=== PATIENT | female | born 1945 | race Caucasian/White ===

== ENCOUNTER 2022-11-29 15:33 | Inpatient (IN) ==
[2022-11-29] MEDS ORDERED: DILAUDID INJ IVP PRN (16:06)
--- NOTE | 2022-11-29 16:56 | RAD ---
HISTORYACUTE COLITIS, ILEUS Relevant Clinical InformationSTUDYKUBCOMPARISONNone availableFINDINGSEvaluation of the abdomen demonstrates several dilated loops of bowel in the mid abdomen; the largest loop of bowel measuring 12 cm in diameter. These findings can be seen with a colitis but without definitive bowel wall thickening. Please correlate with abdominopelvic CT imaging or lactic acid levels in order to exclude possible ischemia. There is a nasogastric tube which extends beyond the GE junction and into the stomach. No pathological soft tissue mass or calcification can be observed.The bony structures are grossly intact. Marked rotatory biconvex thoracolumbar spinal scoliosis identified. Uncomplicated right hip arthroplasty in place.IMPRESSIONAs aboveElectronically signed by: JOSÉ ANTONIO PAIGE III (Nov 29, 2022 16:51:29)
[2022-11-29] MEDS ORDERED: D5 1/2 NS 1,000 ML 1,000 ML IV SCH (17:00)
[2022-11-29 17:23] LABS: BASOPHILS % (AUTO) 0.2 % (0.2-1.0); EOSINOPHILS % (AUTO) 0.1 % (0.9-2.9); LYMPHOCYTES # (AUTO) 0.4 X10^3/uL (1.3-2.9); MEAN CORPUSCULAR HEMOGLOBIN 29.9 pg (27.0-34.0); MONOCYTES # (AUTO) 0.4 x10^3/uL (0.3-0.8)
[2022-11-29 17:34] LABS: HEMOGLOBIN 14.8 g/dL (12.0-16.0); MEAN CORPUSCULAR HGB CONC 32.9 g/dL (33.0-35.0); MEAN CORPUSCULAR VOLUME 91.2 fL (80.0-100.0); MEAN PLATELET VOLUME 9.6 fL (7.4-11.0); MONOCYTES % (AUTO) 6.9 % (0.0-13.0); NEUTROPHILS # (AUTO) 5.3 x10^3/uL (2.2-4.8); NEUTROPHILS % (AUTO) 85.8 % (42.0-75.0); RED BLOOD COUNT 4.94 X10^6/uL (3.5-5.4); RED CELL DISTRIBUTION WIDTH 14.2 % (11.6-16.5); WHITE BLOOD COUNT 6.2 X10^3/uL (3.6-10.0)
[2022-11-29 17:42] LABS: ALBUMIN 2.9 g/dL (3.4-5.0); CALCIUM 7.9 mg/dL (8.5-10.1); COR CA(FOR HYPOALB) 8.8 mg/dL (8.5-10.1); CREATININE 1.21 mg/dL (0.55-1.02); TOTAL PROTEIN 5.5 g/dL (6.4-8.2)
[2022-11-29] MEDS: CARDIZEM CD 120 MG 24-HR PO SCH (17:58)
[2022-11-29] MEDS: PROTONIX INJ 40 MG VIAL IVP SCH (20:26)
[2022-11-29] MEDS ORDERED: TORADOL 30 MG VIAL IVP PRN (21:39)
[2022-11-29] MEDS ORDERED: TORADOL 30 MG VIAL ONE (21:50)
[2022-11-29] MEDS ORDERED: ZOSYN VIAL 3.375 GRAMS IV ONE (22:13)
[2022-11-29] MEDS ORDERED: NS 100 ML IV 100 ML ONE (22:13)
[2022-11-29] MEDS: ZOSYN VIAL 3.375 GRAMS 3.375 G in NS 100 ML IV + SPIKE MINIBAG* 100 ML IV SCH (22:18)
[2022-11-29] MEDS: D5 1/2 NS 1,000 ML 1,000 ML IV PRN (23:42)
[2022-11-30] MEDS: TORADOL 30 MG VIAL IVP PRN ×2 (02:58→22:15)
[2022-11-30] MEDS ORDERED: NS 100 ML IV 100 ML ONE (04:52)
[2022-11-30] MEDS: ZOSYN VIAL 3.375 GRAMS 3.375 G in NS 100 ML IV + SPIKE MINIBAG* 100 ML IV SCH (05:01)
[2022-11-30 06:12] LABS: BASOPHILS % (AUTO) 0.1 % (0.2-1.0); EOSINOPHILS % (AUTO) 0.1 % (0.9-2.9); HEMATOCRIT 37.8 % (36.0-47.0); HEMOGLOBIN 12.5 g/dL (12.0-16.0); LYMPHOCYTES # (AUTO) 1.1 X10^3/uL (1.3-2.9); LYMPHOCYTES % (AUTO) 10.1 % (21.0-51.0); MEAN CORPUSCULAR HEMOGLOBIN 29.8 pg (27.0-34.0); MEAN CORPUSCULAR HGB CONC 33.1 g/dL (33.0-35.0); MEAN CORPUSCULAR VOLUME 89.9 fL (80.0-100.0); MONOCYTES # (AUTO) 0.8 x10^3/uL (0.3-0.8); MONOCYTES % (AUTO) 7.2 % (0.0-13.0); NEUTROPHILS # (AUTO) 8.8 x10^3/uL (2.2-4.8); NEUTROPHILS % (AUTO) 82.5 % (42.0-75.0); RED BLOOD COUNT 4.21 X10^6/uL (3.5-5.4); RED CELL DISTRIBUTION WIDTH 14.3 % (11.6-16.5); WHITE BLOOD COUNT 10.6 X10^3/uL (3.6-10.0)
[2022-11-30 06:32] LABS: ALBUMIN 2.1 g/dL (3.4-5.0); CALCIUM 7.4 mg/dL (8.5-10.1); CARBON DIOXIDE 15.2 mmol/L (21-32); COR CA(FOR HYPOALB) 8.9 mg/dL (8.5-10.1); CREATININE 1.65 mg/dL (0.55-1.02); TOTAL PROTEIN 4.7 g/dL (6.4-8.2)
--- NOTE | 2022-11-30 08:07 | DR.CONSULT ---
CONSULT Consultation for Day of: Date: 11/29/22 Chief Complaint Chief Complaint: Medical management Allergies Allergies Allergy/AdvReac Type Severity Reaction Status Date / Time tramadol Allergy Verified 11/29/22 16:59 amoxicillin [From Amoxil] AdvReac Severe ANAPHALEXIS Verified 11/29/22 16:58 REACTION History of Present Illness History of Present Illness: This is a pleasant 77-year-old white female who was transferred over to [facility] after it was found that she has colitis or possible bowel obstruction. Patient was worked up in the [place], [place] emergency department earlier in the morning however they did not have a surgeon on duty. I have recently seen the patient as a new patient earlier this month she has a history of hypertension, GERD, anxiety and hypothyroidism. She has a previous history of appendectomy as well. Currently she reports her pain is under control and that her nausea has subsided at this time. Is noted that she did vomit twice earlier. She had been sick for 3 days previously with no bowel movement. Her symptoms progressively got worse earlier in the day. Past Medical History Past Medical History: Anxiety, GERD, Hypertension and Hypothyroidism Past Surgical History Surgical History: Appendectomy and Ortho Surgery Family History Family Medical History: Diabetes Mellitus and Hypertension Social History Does patient currently use any type of tobacco product: No Have you used tobacco products in the last 12 months: No Type of Tobacco Use: None Does any household member use tobacco: No Alcohol Use: None Drug Use: None Medications Home Medications: tramadol Allergy (Verified 11/29/22 16:59) amoxicillin [From Amoxil] Adverse Reaction (Severe, Verified 11/29/22 16:58) ANAPHALEXIS REACTION CONTINUE taking the following medications aspirin 81 mg capsule 81 mg PO QDAY 11/29/22 [History] clonidine HCl 0.1 mg tablet 1 tab PO QPM 11/29/22 [History] duloxetine 60 mg capsule,delayed release 1 cap PO QPM 11/29/22 [History] ferrous sulfate 325 mg (65 mg iron) tablet 325 mg PO BID 11/29/22 [History] levothyroxine 25 mcg tablet 1 tab PO QAM 11/29/22 [History] lisinopril 10 mg tablet 1 tab PO QAM 11/29/22 [History] meloxicam 7.5 mg tablet 1 tab PO QDAY 11/29/22 [History] pantoprazole 40 mg tablet,delayed release 1 tab PO BID 11/29/22 [History] pregabalin 75 mg capsule 1 cap PO BID 11/29/22 [History] simvastatin 20 mg tablet 1 tab PO QPM 11/29/22 [History] Review of Systems Constitutional: Weakness and Malaise Eyes: No Symptoms Reported ENT: No Symptoms Reported Respiratory: No Symptoms Reported Cardiovascular: No Symptoms Reported Gastrointestinal: Nausea, Vomiting, Abdominal Pain and Constipation Genitourinary: No Symptoms Reported Musculoskeletal: No Symptoms Reported Skin: No Symptoms Reported Neurological: No Symptoms Reported Physical Exam Vital Signs: Temperature 97.6 F Pulse Rate [Left Radial] 101 Pulse Rate 130 Respiratory Rate 22 Blood Pressure [Left Arm] 95/55 Blood Pressure 134/81 O2 Sat by Pulse Oximetry 97 Oriented: Normal, Time, Person and Place Eyes: Normal Ear: Normal Nose: Normal Respiratory: Clear Throughout Cardiovascular: Normal Palpation: Normal Tenderness: Periumbilical Skin: Decreased Turgur Psychiatric: Normal Mood Description: Calm Affect: Normal Speech Pattern: Clear and Appropriate Plan (1) Abdominal pain: Status: Acute Plan: Pain control and follow-up with general surgery recommendations. (2) Nausea & vomiting: Status: Acute Plan: As needed Zofran. (3) Hypertension: Status: Acute Plan: I will give the patient IV Lopressor if she needs control of her blood pressure. (4) Hypothyroidism: Status: Acute (5) GERD (gastroesophageal reflux disease): Status: Acute Plan: IV Protonix 40 mg IV daily.
[2022-11-30] MEDS: PROTONIX INJ 40 MG VIAL IVP SCH ×2 (08:21→21:44)
[2022-11-30] MEDS: MORPHINE SULFATE INJ 2 MG INJ IVP PRN ×3 (08:22→17:04)
[2022-11-30] MEDS: CARDIZEM CD 120 MG 24-HR PO SCH (08:23)
[2022-11-30] MEDS: D5 1/2 NS 1,000 ML 1,000 ML IV PRN (08:35)
--- NOTE | 2022-11-30 08:41 | DR.PROGNOT ---
HOSPITAL PROGRESS NOTE Progress Note for Day of: Progress Note Date: 11/30/22 Chief Complaint Chief Complaint: still with severe abdominal pain and abdominal distention . was hypotensive last night required increase IVF . fair urine output . mild drainage in NGT . . WBC 10.6 .. BUN 39 . Creat 1.6 temp 98 Past Medical Family Social History Allergies: Allergies tramadol Allergy (Verified 11/29/22 16:59) amoxicillin [From Amoxil] Adverse Reaction (Severe, Verified 11/29/22 16:58) ANAPHALEXIS REACTION Review Of Systems Changes in ROS: no changes Vital Signs Vital Signs: Temperature 97.6 F Pulse Rate [Left Radial] 101 Pulse Rate 130 Respiratory Rate 20 Blood Pressure [Left Arm] 95/55 Blood Pressure 134/81 O2 Sat by Pulse Oximetry 97 Physical Exam Oriented: Normal, Time, Person and Place Eyes: Normal Ear: Normal Nose: Normal Cardiovascular: Normal GI:Palpation: Normal (distended abdomen , tympanic and very tender ..BS hypoactive .) GI: Tenderness: Periumbilical Skin: Decreased Turgur Psychiatric: Normal Mood Description: Calm Affect: Normal Speech Pattern: Clear and Appropriate Laboratory and Diagnostics Result Diagrams: 11/30/22 05:35 11/30/22 05:35 Labs: Laboratory WBC 10.6 X10^3/uL (3.6-10.0) H 11/30/22 05:35 RBC 4.21 X10^6/uL (3.5-5.4) 11/30/22 05:35 Hgb 12.5 g/dL (12.0-16.0) D 11/30/22 05:35 Hct 37.8 % (36.0-47.0) 11/30/22 05:35 MCV 89.9 fL (80.0-100.0) 11/30/22 05:35 MCH 29.8 pg (27.0-34.0) 11/30/22 05:35 MCHC 33.1 g/dL (33.0-35.0) 11/30/22 05:35 RDW 14.3 % (11.6-16.5) 11/30/22 05:35 Plt Count 207 X10^3/uL (150.0-450.0) 11/30/22 05:35 MPV 10.0 fL (7.4-11.0) 11/30/22 05:35 Neut % (Auto) 82.5 % (42.0-75.0) H 11/30/22 05:35 Lymph % (Auto) 10.1 % (21.0-51.0) L 11/30/22 05:35 [place] % (Auto) 7.2 % (0.0-13.0) 11/30/22 05:35 Eos % (Auto) 0.1 % (0.9-2.9) L 11/30/22 05:35 Baso % (Auto) 0.1 % (0.2-1.0) L 11/30/22 05:35 Neut # (Auto) 8.8 x10^3/uL (2.2-4.8) H 11/30/22 05:35 Lymph # (Auto) 1.1 X10^3/uL (1.3-2.9) L 11/30/22 05:35 [place] # (Auto) 0.8 x10^3/uL (0.3-0.8) 11/30/22 05:35 Eos # (Auto) 0.0 x10^3/uL (0.0-0.2) 11/30/22 05:35 Baso # (Auto) 0.0 X10^3/uL (0.0-0.1) 11/30/22 05:35 Absolute Nucleated RBC 0.0 /100WBC 11/30/22 05:35 Sodium 140 mmol/L (136-145) 11/30/22 05:35 Corrected Sodium 141 mmol/L (136-145) 11/30/22 05:35 Potassium 4.5 mmol/L (3.5-5.1) 11/30/22 05:35 Chloride 110 mmol/L (98-107) H 11/30/22 05:35 Carbon Dioxide 15.2 mmol/L (21-32) L 11/30/22 05:35 BUN 35 mg/dL (7-18) H 11/30/22 05:35 Creatinine 1.65 mg/dL (0.55-1.02) H 11/30/22 05:35 Est GFR (MDRD) Af Amer 39 (>60) L 11/30/22 05:35 Est GFR (MDRD) Non-Af 32 (>60) L 11/30/22 05:35 Glucose 153 mg/dL (65-99) H 11/30/22 05:35 Calcium 7.4 mg/dL (8.5-10.1) L 11/30/22 05:35 Corrected Calcium 8.9 mg/dL (8.5-10.1) 11/30/22 05:35 Total Bilirubin 0.40 mg/dL (0.2-1.0) 11/30/22 05:35 AST 33 Units/L (15-37) 11/30/22 05:35 ALT 26 Units/L (12-78) 11/30/22 05:35 Alkaline Phosphatase 153 Units/L (46-116) H 11/30/22 05:35 Total Protein 4.7 g/dL (6.4-8.2) L 11/30/22 05:35 Albumin 2.1 g/dL (3.4-5.0) L 11/30/22 05:35 Globulin 2.6 g/dL (2.5-4.5) 11/30/22 05:35 Albumin/Globulin Ratio 0.8 Ratio (1.1-2.1) L 11/30/22 05:35 Assessment and Plan 1: large bowel obstruction . keep NPO , IVF , IV ABT to repeat KUB .
--- NOTE | 2022-11-30 09:01 | PCM.PROG ---
Progress Note Progress Note for Day of Date of Exam: 11/30/22 Subjective Subjective: Patient is complaining of abdominal pain this morning. She also has some pain last night as well but the nurses report. They also note that her blood pressures been running little bit on the low side and because of that they stopped her Dilaudid and change her over to morphine. She is noted to be dehydrated however she is receiving D5 half-normal saline at 150 mL an hour at this time. NG tube still in place. KUB this morning showed increased distention of loops of bowels. Past Medical Family Social History Allergies: Allergies tramadol Allergy (Verified 11/29/22 16:59) amoxicillin [From Amoxil] Adverse Reaction (Severe, Verified 11/29/22 16:58) ANAPHALEXIS REACTION Review of Systems ROS: No change since H&P Vital Signs and I&O's Vital Signs: Temperature 97.6 F Pulse Rate [Left Radial] 101 Pulse Rate 130 Respiratory Rate 20 Blood Pressure [Left Arm] 95/55 Blood Pressure 134/81 O2 Sat by Pulse Oximetry 97 Intake and Output: Intake & Output 11/27/22 11/28/22 11/29/22 11/30/22 11:59 11:59 11:59 11:59 Intake Total 2850 / 2850 Output Total 645 / 645 Balance 2205 / 2205 Physical Exam Oriented: Normal, Time, Person and Place Eyes: Normal Ear: Normal Nose: Normal Respiratory: Normal Cardiovascular: Normal Auscultation: Bowel Sounds: Absent Tenderness: Periumbilical Skin: Decreased Turgur Psychiatric: Normal Mood Description: Calm Affect: Normal Speech Pattern: Clear and Appropriate Laboratory and Diagnostics Result Diagrams: 11/30/22 05:35 11/30/22 05:35 Labs: Laboratory WBC 10.6 X10^3/uL (3.6-10.0) H 11/30/22 05:35 RBC 4.21 X10^6/uL (3.5-5.4) 11/30/22 05:35 Hgb 12.5 g/dL (12.0-16.0) D 11/30/22 05:35 Hct 37.8 % (36.0-47.0) 11/30/22 05:35 MCV 89.9 fL (80.0-100.0) 11/30/22 05:35 MCH 29.8 pg (27.0-34.0) 11/30/22 05:35 MCHC 33.1 g/dL (33.0-35.0) 11/30/22 05:35 RDW 14.3 % (11.6-16.5) 11/30/22 05:35 Plt Count 207 X10^3/uL (150.0-450.0) 11/30/22 05:35 MPV 10.0 fL (7.4-11.0) 11/30/22 05:35 Neut % (Auto) 82.5 % (42.0-75.0) H 11/30/22 05:35 Lymph % (Auto) 10.1 % (21.0-51.0) L 11/30/22 05:35 [place] % (Auto) 7.2 % (0.0-13.0) 11/30/22 05:35 Eos % (Auto) 0.1 % (0.9-2.9) L 11/30/22 05:35 Baso % (Auto) 0.1 % (0.2-1.0) L 11/30/22 05:35 Neut # (Auto) 8.8 x10^3/uL (2.2-4.8) H 11/30/22 05:35 Lymph # (Auto) 1.1 X10^3/uL (1.3-2.9) L 11/30/22 05:35 [place] # (Auto) 0.8 x10^3/uL (0.3-0.8) 11/30/22 05:35 Eos # (Auto) 0.0 x10^3/uL (0.0-0.2) 11/30/22 05:35 Baso # (Auto) 0.0 X10^3/uL (0.0-0.1) 11/30/22 05:35 Absolute Nucleated RBC 0.0 /100WBC 11/30/22 05:35 Sodium 140 mmol/L (136-145) 11/30/22 05:35 Corrected Sodium 141 mmol/L (136-145) 11/30/22 05:35 Potassium 4.5 mmol/L (3.5-5.1) 11/30/22 05:35 Chloride 110 mmol/L (98-107) H 11/30/22 05:35 Carbon Dioxide 15.2 mmol/L (21-32) L 11/30/22 05:35 BUN 35 mg/dL (7-18) H 11/30/22 05:35 Creatinine 1.65 mg/dL (0.55-1.02) H 11/30/22 05:35 Est GFR (MDRD) Af Amer 39 (>60) L 11/30/22 05:35 Est GFR (MDRD) Non-Af 32 (>60) L 11/30/22 05:35 Glucose 153 mg/dL (65-99) H 11/30/22 05:35 Calcium 7.4 mg/dL (8.5-10.1) L 11/30/22 05:35 Corrected Calcium 8.9 mg/dL (8.5-10.1) 11/30/22 05:35 Total Bilirubin 0.40 mg/dL (0.2-1.0) 11/30/22 05:35 AST 33 Units/L (15-37) 11/30/22 05:35 ALT 26 Units/L (12-78) 11/30/22 05:35 Alkaline Phosphatase 153 Units/L (46-116) H 11/30/22 05:35 Total Protein 4.7 g/dL (6.4-8.2) L 11/30/22 05:35 Albumin 2.1 g/dL (3.4-5.0) L 11/30/22 05:35 Globulin 2.6 g/dL (2.5-4.5) 11/30/22 05:35 Albumin/Globulin Ratio 0.8 Ratio (1.1-2.1) L 11/30/22 05:35 Radiology Reviewed: Yes Plan (1) Abdominal pain: Status: Acute Plan: Continue morphine for pain control. I will also check a lactic acid to rule out mesenteric ischemia. (2) Nausea & vomiting: Status: Acute Plan: Continue as needed Zofran. (3) Hypertension: Status: Acute (4) Hypothyroidism: Status: Acute Plan: Hold p.o. levothyroxine at this time. (5) GERD (gastroesophageal reflux disease): Status: Acute Plan: Continue IV Protonix. (6) Dehydration: Status: Acute Plan: Continue IV hydration.
--- NOTE | 2022-11-30 11:12 | RAD ---
KUBHISTORY: ACUTE COLITIS, ILEUS, ABDOMINAL PAIN, NGT PLACEMENTStudy: Single view of the abdomen.Comparison:NoneFindings:There is a NG tube terminating within the stomach.Bowel gas pattern is normal.IMPRESSION:1. NG tube terminating within the stomach.Electronically signed by: TERESA PARSON (Nov 30, 2022 11:10:36)
--- NOTE | 2022-11-30 13:22 | EKG ---
Test Reason : Colitis, abdominal pain Blood Pressure : */* mmHG Vent. Rate : 100 BPM Atrial Rate : 100 BPM P-R Int : 138 ms QRS Dur : 72 ms QT Int : 310 ms P-R-T Axes : 49 21 60 degrees QTc Int : 399 ms Normal sinus rhythm Low voltage QRS Nonspecific T wave abnormality Abnormal ECG No previous ECGs available Confirmed by Ronald Christianson ([id number]) on 12/02/2022 7:08:25 AM Referred By: Confirmed By: Ronald Christianson
[2022-11-30] MEDS: D5 1/2 NS 1,000 ML 1,000 ML IV SCH ×3 (13:37→22:27)
[2022-11-30] MEDS: FORTAZ or TAZICEF VIAL INJ 1 G in NS 100 ML IV 100 ML IV SCH ×2 (13:37→22:17)
--- NOTE | 2022-11-30 13:47 | CT ---
ABDOMEN/PELVIS W/O CONHISTORY: PAINComparison:11/29/2022Technique:Multiple non contrast axial images of the abdomen and pelvis were obtained from the lung bases to the pubic symphysis.. Dose reduction techniques including Automated Exposure Control (AEC) and adjustment of mA and kV were utlized.Findings:The sensitivity for focal lesion detection within the solid abdominal viscera is diminished without the use of IV contrast.The heart is normal in size. There is no pericardial effusion. Developing consolidation of the right and left lung bases, more notable on the right. Trace bilateral effusions.Liver and spleen are normal in size, contour. New moderate amount of perihepatic fluid as well as fluid in the right pericolic gutter. No free air. Calcified granulomas of the spleen. No ductal dilitation. Probable gallbladder sludge without definite evidence of gallbladder inflammation. The pancreas is unremarkable. Adrenal glands are normal. Kidneys are without hydronephrosis or nephrolithiasis.Large amount of mixed liquid and solid stool throughout the colon. Extensive diverticulosis without definite acute diverticulitis. There is fluid in the bilateral pericolic gutters although more notable on the right and, as mentioned, extending into the perihepatic region. This has worsened significantly when compared to prior. No abnormal appearing mesenteric or retroperitoneal lymph nodes.The bladder is normal in appearance. Uterus not well seen. No free fluid or abnormal pelvic lymph nodes.No aggressive osseous lesions. Severe degenerative scoliosis of the thoracolumbar spine.IMPRESSION:1.Significant worsening in the mount of fluid within the right greater than left pericolic gutter as well as now within the right perihepatic region. There is some inflammatory change of the rectosigmoid colon which is similar. The right colon contains both liquid and solid stool. Overall findings may represent colitis. If patient does not demonstrate symptoms of infection, ischemic colitis cannot be excluded. Surgical consultation recommended.2. Developing bibasilar lung consolidations more notable on the right with small adjacent effusions.Electronically signed by: TERESA PARSON (Nov 30, 2022 13:46:33)
[2022-11-30] MEDS ORDERED: ZOSYN VIAL 3.375 GRAMS 3.375 G in NS 100 ML IV 100 ML IV SCH (14:00)
[2022-11-30] MEDS: FLAGYL IV PREMIX 500 MG BAG 500 MG/100 ML BAG IV SCH (17:25)
[2022-11-30] MEDS: CIPRO IV 400 MG PREMIX* 400 MG/200 ML IV.SOLN. IV SCH (21:44)
[2022-11-30] MEDS: CYMBALTA PO SCH (21:44)
[2022-12-01] MEDS: FLAGYL IV PREMIX 500 MG BAG 500 MG/100 ML BAG IV SCH ×3 (00:27→16:33)
[2022-12-01] MEDS: D5 1/2 NS 1,000 ML 1,000 ML IV SCH ×4 (03:30→21:06)
[2022-12-01] MEDS: FORTAZ or TAZICEF VIAL INJ 1 G in NS 100 ML IV 100 ML IV SCH ×3 (05:26→21:06)
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
[2022-12-01 06:20] LABS: BASOPHILS % (AUTO) 0.2 % (0.2-1.0); EOSINOPHILS % (AUTO) 0.5 % (0.9-2.9); HEMATOCRIT 34.7 % (36.0-47.0); HEMOGLOBIN 11.6 g/dL (12.0-16.0); LYMPHOCYTES # (AUTO) 0.8 X10^3/uL (1.3-2.9); LYMPHOCYTES % (AUTO) 10.1 % (21.0-51.0); MEAN CORPUSCULAR HEMOGLOBIN 30.2 pg (27.0-34.0); MEAN CORPUSCULAR HGB CONC 33.4 g/dL (33.0-35.0); MEAN CORPUSCULAR VOLUME 90.3 fL (80.0-100.0); MEAN PLATELET VOLUME 9.9 fL (7.4-11.0); MONOCYTES # (AUTO) 0.5 x10^3/uL (0.3-0.8); MONOCYTES % (AUTO) 5.9 % (0.0-13.0); NEUTROPHILS # (AUTO) 6.7 x10^3/uL (2.2-4.8); NEUTROPHILS % (AUTO) 83.3 % (42.0-75.0); RED BLOOD COUNT 3.84 X10^6/uL (3.5-5.4); RED CELL DISTRIBUTION WIDTH 14.2 % (11.6-16.5)
[2022-12-01 06:35] LABS: ALANINE AMINOTRANSFERASE 30 Units/L (12-78); ALBUMIN 1.9 g/dL (3.4-5.0); ALKALINE PHOSPHATASE 169 Units/L (46-116); ASPARTATE AMINO TRANSFERASE 39 Units/L (15-37); BLOOD UREA NITROGEN 43 mg/dL (7-18); CHLORIDE 108 mmol/L (98-107); COR CA(FOR HYPOALB) 8.7 mg/dL (8.5-10.1); CREATININE 1.75 mg/dL (0.55-1.02); MAGNESIUM 1.9 mg/dL (2.0-2.9); SODIUM 138 mmol/L (136-145); TOTAL PROTEIN 4.7 g/dL (6.4-8.2); eGFR NON BLACK RACES 30 (>60)
[2022-12-01 07:08] LABS: BAND NEUTROPHILS % 24 % (0-10)
[2022-12-01 07:09] LABS: METAMYELOCYTES % 4; MYELOCYTES % 1
[2022-12-01 07:10] LABS: BURR CELLS SLIGHT; PLATELET MORPHOLOGY COMMENT NORMAL (NORMAL)
[2022-12-01] MEDS ORDERED: NS 500 ML IV 500 ML IV ONE (08:17)
[2022-12-01] MEDS: TORADOL 30 MG VIAL IVP PRN (08:54)
[2022-12-01] MEDS: PROTONIX INJ 40 MG VIAL IVP SCH ×2 (08:55→20:23)
[2022-12-01] MEDS: SYNTHROID 25 mcg TAB PO SCH (08:56)
[2022-12-01] MEDS ORDERED: EXT REL PO SCH (09:00)
[2022-12-01] MEDS ORDERED: DILTIAZEM HCL 120 MG PO SCH (09:00)
[2022-12-01] MEDS: CARDIZEM CD 120 MG 24-HR PO SCH (09:39)
--- NOTE | 2022-12-01 11:18 | PCM.PROG ---
Progress Note Progress Note for Day of Date of Exam: 12/01/22 Subjective Subjective: The patient is still complaining of abdominal pain this point. She is still distended and does not have bowel sounds again this morning. She still not had a bowel movement. CT scan yesterday showed significant worsening amount of fluid within the right greater and left paracolic gutters. There was also inflammatory changes seen in the rectosigmoid colon as well. The right colon contained liquid and solid stool. Overall findings may represent colitis or ischemic colitis. It is noted that her blood pressure still down and that her BUN and creatinine are trending up again since yesterday. Past Medical Family Social History Allergies: Allergies tramadol Allergy (Verified 11/29/22 16:59) amoxicillin [From Amoxil] Adverse Reaction (Severe, Verified 11/29/22 16:58) ANAPHALEXIS REACTION Review of Systems ROS: No change since H&P Vital Signs and I&O's Vital Signs: Temperature 98.6 F Pulse Rate [Left Radial] 108 Pulse Rate 130 Respiratory Rate 16 Blood Pressure [Left Arm] 95/50 Blood Pressure 134/81 O2 Sat by Pulse Oximetry 100 Intake and Output: Intake & Output 11/28/22 11/29/22 11/30/22 12/01/22 11:59 11:59 11:59 11:59 Intake Total 2850 / 2850 2930 / 2930 Output Total 645 / 645 1400 / 1400 Balance 2205 / 2205 1530 / 1530 Physical Exam Oriented: Normal, Time, Person and Place Eyes: Normal Ear: Normal Nose: Normal Respiratory: Normal Cardiovascular: Normal Auscultation: Bowel Sounds: Absent Tenderness: Periumbilical Skin: Decreased Turgur Psychiatric: Normal Mood Description: Calm Affect: Normal Speech Pattern: Clear and Appropriate Laboratory and Diagnostics Result Diagrams: 12/01/22 05:40 12/01/22 05:40 Labs: Laboratory WBC 8.0 X10^3/uL (3.6-10.0) 12/01/22 05:40 RBC 3.84 X10^6/uL (3.5-5.4) 12/01/22 05:40 Hgb 11.6 g/dL (12.0-16.0) L 12/01/22 05:40 Hct 34.7 % (36.0-47.0) L 12/01/22 05:40 MCV 90.3 fL (80.0-100.0) 12/01/22 05:40 MCH 30.2 pg (27.0-34.0) 12/01/22 05:40 MCHC 33.4 g/dL (33.0-35.0) 12/01/22 05:40 RDW 14.2 % (11.6-16.5) 12/01/22 05:40 Plt Count 165 X10^3/uL (150.0-450.0) 12/01/22 05:40 Plt Count Comment Adequate (ADEQUATE) 12/01/22 05:40 MPV 9.9 fL (7.4-11.0) 12/01/22 05:40 Neut % (Auto) 83.3 % (42.0-75.0) H 12/01/22 05:40 Lymph % (Auto) 10.1 % (21.0-51.0) L 12/01/22 05:40 [place] % (Auto) 5.9 % (0.0-13.0) 12/01/22 05:40 Eos % (Auto) 0.5 % (0.9-2.9) L 12/01/22 05:40 Baso % (Auto) 0.2 % (0.2-1.0) 12/01/22 05:40 Neut # (Auto) 6.7 x10^3/uL (2.2-4.8) H 12/01/22 05:40 Lymph # (Auto) 0.8 X10^3/uL (1.3-2.9) L 12/01/22 05:40 [place] # (Auto) 0.5 x10^3/uL (0.3-0.8) 12/01/22 05:40 Eos # (Auto) 0.0 x10^3/uL (0.0-0.2) 12/01/22 05:40 Baso # (Auto) 0.0 X10^3/uL (0.0-0.1) 12/01/22 05:40 Absolute Nucleated RBC 0.1 /100WBC 12/01/22 05:40 Total Counted 100 12/01/22 05:40 Neutrophils % (Manual) 45 % (39-76) 12/01/22 05:40 Band Neutrophils % 24 % (0-10) H 12/01/22 05:40 Lymphocytes % (Manual) 14 % (13-43) 12/01/22 05:40 Monocytes % (Manual) 12 % (4-9) H 12/01/22 05:40 Metamyelocytes % 4 12/01/22 05:40 Myelocytes % 1 12/01/22 05:40 Plt Morphology Comment Normal (NORMAL) 12/01/22 05:40 RBC Morphology Abnormal (NORMAL) A 12/01/22 05:40 [place] Cells Slight A 12/01/22 05:40 Sodium 138 mmol/L (136-145) 12/01/22 05:40 Corrected Sodium TNP 12/01/22 05:40 Potassium 4.5 mmol/L (3.5-5.1) 12/01/22 05:40 Chloride 108 mmol/L (98-107) H 12/01/22 05:40 Carbon Dioxide 17.0 mmol/L (21-32) L 12/01/22 05:40 BUN 43 mg/dL (7-18) H 12/01/22 05:40 Creatinine 1.75 mg/dL (0.55-1.02) H 12/01/22 05:40 Est GFR (MDRD) Af Amer 36 (>60) L 12/01/22 05:40 Est GFR (MDRD) Non-Af 30 (>60) L 12/01/22 05:40 Glucose 92 mg/dL (65-99) 12/01/22 05:40 Lactic Acid 1.8 mmol/L (0.4-2.0) 11/30/22 15:12 Calcium 7.0 mg/dL (8.5-10.1) L 12/01/22 05:40 Corrected Calcium 8.7 mg/dL (8.5-10.1) 12/01/22 05:40 Magnesium 1.9 mg/dL (2.0-2.9) L 12/01/22 05:40 Total Bilirubin 0.30 mg/dL (0.2-1.0) 12/01/22 05:40 AST 39 Units/L (15-37) H 12/01/22 05:40 ALT 30 Units/L (12-78) 12/01/22 05:40 Alkaline Phosphatase 169 Units/L (46-116) H 12/01/22 05:40 Total Protein 4.7 g/dL (6.4-8.2) L 12/01/22 05:40 Albumin 1.9 g/dL (3.4-5.0) L 12/01/22 05:40 Globulin 2.8 g/dL (2.5-4.5) 12/01/22 05:40 Albumin/Globulin Ratio 0.7 Ratio (1.1-2.1) L 12/01/22 05:40 Plan (1) Abdominal pain: Status: Acute Narrative Support Text: Patient may have mesenteric ischemia versus colitis. General surgery plans on taking the patient to surgery later this morning. Follow-up with results. Plan: Continue morphine for pain control. Exploratory laparotomy this morning. (2) Nausea & vomiting: Status: Acute Plan: Continue as needed Zofran. (3) Hypertension: Status: Acute (4) Hypothyroidism: Status: Acute Plan: Hold p.o. levothyroxine at this time. (5) GERD (gastroesophageal reflux disease): Status: Acute Plan: Continue IV Protonix. (6) Dehydration: Status: Acute Plan: Continue IV hydration. (7) Acute kidney failure: Status: Acute Plan: I will give the patient a bolus of 500 mL normal saline x1 this morning.
[2022-12-01] MEDS ORDERED: LR 1,000 ML IV 1,000 ML IV ONE (11:46)
--- NOTE | 2022-12-01 11:49 | PCM.PROG ---
Progress Note - Subjective Subjective: The patient is still complaining of abdominal pain this point. She is still distended and does not have bowel sounds again this morning. She still not had a bowel movement. CT scan yesterday showed significant worsening amount of fluid within the right greater and left paracolic gutters. There was also inflammatory changes seen in the rectosigmoid colon as well. The right colon contained liquid and solid stool. Overall findings may represent colitis or ischemic colitis. It is noted that her blood pressure still down and that her BUN and creatinine are trending up again since yesterday. - Past Medical Family Social History Allergies: Allergies tramadol Allergy (Verified 11/29/22 16:59) amoxicillin [From Amoxil] Adverse Reaction (Severe, Verified 11/29/22 16:58) ANAPHALEXIS REACTION - Review of Systems ROS: No change since H&P - Vital Signs and I&O's Vital Signs: Temperature 98.6 F Pulse Rate [Left Radial] 108 Pulse Rate 130 Respiratory Rate 16 Blood Pressure [Left Arm] 95/50 Blood Pressure 134/81 O2 Sat by Pulse Oximetry 100 Intake and Output: Intake & Output 11/28/22 11/29/22 11/30/22 12/01/22 23:59 23:59 23:59 23:59 Intake Total 1600 / 1600 3597 / 3597 583 / 583 Output Total 425 / 425 995 / 995 625 / 625 Balance 1175 / 1175 2602 / 2602 -42 / -42 - Physical Exam Oriented: Normal, Time, Person, Place Eyes: Normal Ear: Normal Nose: Normal Respiratory: Normal Cardiovascular: Normal Auscultation: Bowel Sounds: Absent Tenderness: Periumbilical Skin: Decreased Turgur Psychiatric: Normal Mood Description: Calm Affect: Normal Speech Pattern: Clear, Appropriate - Laboratory and Diagnostics Result Diagrams: 12/01/22 05:40 12/01/22 05:40 Labs: Laboratory WBC 8.0 X10^3/uL (3.6-10.0) 12/01/22 05:40 RBC 3.84 X10^6/uL (3.5-5.4) 12/01/22 05:40 Hgb 11.6 g/dL (12.0-16.0) L 12/01/22 05:40 Hct 34.7 % (36.0-47.0) L 12/01/22 05:40 MCV 90.3 fL (80.0-100.0) 12/01/22 05:40 MCH 30.2 pg (27.0-34.0) 12/01/22 05:40 MCHC 33.4 g/dL (33.0-35.0) 12/01/22 05:40 RDW 14.2 % (11.6-16.5) 12/01/22 05:40 Plt Count 165 X10^3/uL (150.0-450.0) 12/01/22 05:40 Plt Count Comment Adequate (ADEQUATE) 12/01/22 05:40 MPV 9.9 fL (7.4-11.0) 12/01/22 05:40 Neut % (Auto) 83.3 % (42.0-75.0) H 12/01/22 05:40 Lymph % (Auto) 10.1 % (21.0-51.0) L 12/01/22 05:40 [place] % (Auto) 5.9 % (0.0-13.0) 12/01/22 05:40 Eos % (Auto) 0.5 % (0.9-2.9) L 12/01/22 05:40 Baso % (Auto) 0.2 % (0.2-1.0) 12/01/22 05:40 Neut # (Auto) 6.7 x10^3/uL (2.2-4.8) H 12/01/22 05:40 Lymph # (Auto) 0.8 X10^3/uL (1.3-2.9) L 12/01/22 05:40 [place] # (Auto) 0.5 x10^3/uL (0.3-0.8) 12/01/22 05:40 Eos # (Auto) 0.0 x10^3/uL (0.0-0.2) 12/01/22 05:40 Baso # (Auto) 0.0 X10^3/uL (0.0-0.1) 12/01/22 05:40 Absolute Nucleated RBC 0.1 /100WBC 12/01/22 05:40 Total Counted 100 12/01/22 05:40 Neutrophils % (Manual) 45 % (39-76) 12/01/22 05:40 Band Neutrophils % 24 % (0-10) H 12/01/22 05:40 Lymphocytes % (Manual) 14 % (13-43) 12/01/22 05:40 Monocytes % (Manual) 12 % (4-9) H 12/01/22 05:40 Metamyelocytes % 4 12/01/22 05:40 Myelocytes % 1 12/01/22 05:40 Plt Morphology Comment Normal (NORMAL) 12/01/22 05:40 RBC Morphology Abnormal (NORMAL) A 12/01/22 05:40 Rusty Cells Slight A 12/01/22 05:40 Sodium 138 mmol/L (136-145) 12/01/22 05:40 Corrected Sodium TNP 12/01/22 05:40 Potassium 4.5 mmol/L (3.5-5.1) 12/01/22 05:40 Chloride 108 mmol/L (98-107) H 12/01/22 05:40 Carbon Dioxide 17.0 mmol/L (21-32) L 12/01/22 05:40 BUN 43 mg/dL (7-18) H 12/01/22 05:40 Creatinine 1.75 mg/dL (0.55-1.02) H 12/01/22 05:40 Est GFR (MDRD) Af Amer 36 (>60) L 12/01/22 05:40 Est GFR (MDRD) Non-Af 30 (>60) L 12/01/22 05:40 Glucose 92 mg/dL (65-99) 12/01/22 05:40 Lactic Acid 1.8 mmol/L (0.4-2.0) 11/30/22 15:12 Calcium 7.0 mg/dL (8.5-10.1) L 12/01/22 05:40 Corrected Calcium 8.7 mg/dL (8.5-10.1) 12/01/22 05:40 Magnesium 1.9 mg/dL (2.0-2.9) L 12/01/22 05:40 Total Bilirubin 0.30 mg/dL (0.2-1.0) 12/01/22 05:40 AST 39 Units/L (15-37) H 12/01/22 05:40 ALT 30 Units/L (12-78) 12/01/22 05:40 Alkaline Phosphatase 169 Units/L (46-116) H 12/01/22 05:40 Total Protein 4.7 g/dL (6.4-8.2) L 12/01/22 05:40 Albumin 1.9 g/dL (3.4-5.0) L 12/01/22 05:40 Globulin 2.8 g/dL (2.5-4.5) 12/01/22 05:40 Albumin/Globulin Ratio 0.7 Ratio (1.1-2.1) L 12/01/22 05:40 Procedures (ALL) - Central Line Placement PCM.CLCO: written consent Time out performed: Yes Patient placed pm monitor/pulse ox: Yes MD prep: mask, gown, gloves, other Centrial line prep: chlorhexidine scrub Local anesthsia used: lidocane 1% Ultrasound used for placement: Yes (good ultrasound visualization) Central line lumen ininserted: double (PICC to right arm) Post procedure: good blood return, all ports aspirated, flushed,capped, sterile dressing applied (+biopatch, +statlock) Post procedure xray: tip oc catheter in good position, no pneumothorax seen Patient tolerated procedure: Yes Complications: none
[2022-12-01] MEDS ORDERED: POLYMYXIN B SULFATE ONE ×2 (11:56→13:50)
[2022-12-01] MEDS ORDERED: NS 1,000 ML IV 1,000 ML ONE ×2 (12:09→14:08)
[2022-12-01] MEDS ORDERED: NEO-SYNEPHRINE INJ 30 MG in NS 500 ML IV 500 ML IV PRN (12:12)
[2022-12-01] MEDS ORDERED: ZEMURON 100 MG VIAL ONE (12:14)
[2022-12-01] MEDS ORDERED: DIPRIVAN VIAL 20 ML ONE (12:14)
[2022-12-01] MEDS ORDERED: BRIDION ONE (12:14)
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
[2022-12-01] MEDS ORDERED: FENTANYL VIAL INJ 250 mcg ONE (12:15)
[2022-12-01] MEDS ORDERED: VERSED ONE (12:16)
[2022-12-01] MEDS ORDERED: ULTANE GAS IN ONE (12:20)
[2022-12-01] MEDS: CIPRO IV 400 MG PREMIX* 400 MG/200 ML IV.SOLN. IV SCH ×2 (14:12→20:23)
[2022-12-01] MEDS ORDERED: BENADRYL INJ 50 MG VIAL IVP PRN (15:06)
[2022-12-01] MEDS ORDERED: ZOFRAN INJ 4 MG VIAL IVP PRN (15:06)
[2022-12-01] MEDS ORDERED: DILAUDID INJ IVP PRN (15:06)
[2022-12-01] MEDS ORDERED: BARHEMSYS INJ IVP PRN (15:06)
[2022-12-01] MEDS: DILAUDID INJ IVP PRN (16:02)
[2022-12-01] MEDS: CYMBALTA PO SCH (20:23)
[2022-12-02] MEDS: FLAGYL IV PREMIX 500 MG BAG 500 MG/100 ML BAG IV SCH ×3 (00:10→18:53)
[2022-12-02] MEDS: DILAUDID INJ IVP PRN ×3 (00:11→23:07)
[2022-12-02] MEDS: D5 1/2 NS 1,000 ML 1,000 ML IV SCH ×4 (04:26→16:01)
[2022-12-02] MEDS: FORTAZ or TAZICEF VIAL INJ 1 G in NS 100 ML IV 100 ML IV SCH ×3 (05:16→21:16)
[2022-12-02 05:26] LABS: BASOPHILS % (AUTO) 0.3 % (0.2-1.0); EOSINOPHILS # (AUTO) 0.1 x10^3/uL (0.0-0.2); EOSINOPHILS % (AUTO) 1.4 % (0.9-2.9); HEMATOCRIT 29.4 % (36.0-47.0); HEMOGLOBIN 9.8 g/dL (12.0-16.0); LYMPHOCYTES % (AUTO) 13.3 % (21.0-51.0); MEAN CORPUSCULAR HEMOGLOBIN 29.8 pg (27.0-34.0); MEAN CORPUSCULAR HGB CONC 33.3 g/dL (33.0-35.0); MEAN CORPUSCULAR VOLUME 89.5 fL (80.0-100.0); MEAN PLATELET VOLUME 10.5 fL (7.4-11.0); MONOCYTES # (AUTO) 0.3 x10^3/uL (0.3-0.8); MONOCYTES % (AUTO) 4.3 % (0.0-13.0); NEUTROPHILS # (AUTO) 5.9 x10^3/uL (2.2-4.8); NEUTROPHILS % (AUTO) 80.7 % (42.0-75.0); RED BLOOD COUNT 3.28 X10^6/uL (3.5-5.4); RED CELL DISTRIBUTION WIDTH 14.6 % (11.6-16.5); WHITE BLOOD COUNT 7.3 X10^3/uL (3.6-10.0)
[2022-12-02 05:36] LABS: ALANINE AMINOTRANSFERASE 27 Units/L (12-78); ALBUMIN 1.5 g/dL (3.4-5.0); ALKALINE PHOSPHATASE 135 Units/L (46-116); ASPARTATE AMINO TRANSFERASE 31 Units/L (15-37); BLOOD UREA NITROGEN 41 mg/dL (7-18); CALCIUM 6.7 mg/dL (8.5-10.1); CARBON DIOXIDE 18.9 mmol/L (21-32); CHLORIDE 110 mmol/L (98-107); COR CA(FOR HYPOALB) 8.7 mg/dL (8.5-10.1); CREATININE 1.62 mg/dL (0.55-1.02); SODIUM 138 mmol/L (136-145); TOTAL PROTEIN 4.1 g/dL (6.4-8.2); eGFR NON BLACK RACES 33 (>60)
[2022-12-02] MEDS: TORADOL 30 MG VIAL IVP PRN ×2 (05:38→22:37)
[2022-12-02 06:07] LABS: BAND NEUTROPHILS % 7 % (0-10); PLATELET MORPHOLOGY COMMENT NORMAL (NORMAL)
[2022-12-02] MEDS: MAGNESIUM SULFATE 1 GRAM/100 mL PREMIX 1 G/100 ML BAG IV PRN ×2 (06:32→14:52)
--- NOTE | 2022-12-02 08:44 | DR.PROGNOT ---
HOSPITAL PROGRESS NOTE Progress Note for Day of: Progress Note Date: 12/02/22 Chief Complaint Chief Complaint: PO sub total colectomy , ileostomy for gangrenous colon . stable .fair urine out put . BP is the 80 th and 90th . slight improvement of renal BUN/Creat . afebrile . Past Medical Family Social History Allergies: Allergies tramadol Allergy (Verified 11/29/22 16:59) amoxicillin [From Amoxil] Adverse Reaction (Severe, Verified 11/29/22 16:58) ANAPHALEXIS REACTION Review Of Systems ROS: No change since H&P Changes in ROS: no changes Vital Signs Vital Signs: Temperature 98.4 F Pulse Rate [Left Radial] 89 Pulse Rate 87 Respiratory Rate 20 Blood Pressure [Left Arm] 94/51 Blood Pressure 92/50 O2 Sat by Pulse Oximetry 97 Physical Exam Oriented: Normal, Time, Person and Place Eyes: Normal Ear: Normal Nose: Normal Respiratory: Normal Cardiovascular: Normal GI:Auscultation: Absent GI:Palpation: Other (soft abdomen , with diffuse tenderness . BS hypo active .) GI: Tenderness: Periumbilical Skin: Decreased Turgur Psychiatric: Normal Mood Description: Calm Affect: Normal Speech Pattern: Unclear Laboratory and Diagnostics Result Diagrams: 12/02/22 04:38 12/02/22 04:38 Labs: 12/01/22 12:45 Abdomen Wound Gram Stain - Final 12/01/22 12:45 Abdomen Wound Culture - Preliminary Laboratory WBC 7.3 X10^3/uL (3.6-10.0) 12/02/22 04:38 RBC 3.28 X10^6/uL (3.5-5.4) L 12/02/22 04:38 Hgb 9.8 g/dL (12.0-16.0) L 12/02/22 04:38 Hct 29.4 % (36.0-47.0) L 12/02/22 04:38 MCV 89.5 fL (80.0-100.0) 12/02/22 04:38 MCH 29.8 pg (27.0-34.0) 12/02/22 04:38 MCHC 33.3 g/dL (33.0-35.0) 12/02/22 04:38 RDW 14.6 % (11.6-16.5) 12/02/22 04:38 Plt Count 114 X10^3/uL (150.0-450.0) L 12/02/22 04:38 Plt Count Comment Decreased (ADEQUATE) A 12/02/22 04:38 MPV 10.5 fL (7.4-11.0) 12/02/22 04:38 Neut % (Auto) 80.7 % (42.0-75.0) H 12/02/22 04:38 Lymph % (Auto) 13.3 % (21.0-51.0) L 12/02/22 04:38 [place] % (Auto) 4.3 % (0.0-13.0) 12/02/22 04:38 Eos % (Auto) 1.4 % (0.9-2.9) 12/02/22 04:38 Baso % (Auto) 0.3 % (0.2-1.0) 12/02/22 04:38 Neut # (Auto) 5.9 x10^3/uL (2.2-4.8) H 12/02/22 04:38 Lymph # (Auto) 1.0 X10^3/uL (1.3-2.9) L 12/02/22 04:38 [place] # (Auto) 0.3 x10^3/uL (0.3-0.8) 12/02/22 04:38 Eos # (Auto) 0.1 x10^3/uL (0.0-0.2) 12/02/22 04:38 Baso # (Auto) 0.0 X10^3/uL (0.0-0.1) 12/02/22 04:38 Absolute Nucleated RBC 0.0 /100WBC 12/02/22 04:38 Total Counted 100 12/02/22 04:38 Neutrophils % (Manual) 78 % (39-76) H 12/02/22 04:38 Band Neutrophils % 7 % (0-10) 12/02/22 04:38 Lymphocytes % (Manual) 10 % (13-43) L 12/02/22 04:38 Monocytes % (Manual) 2 % (4-9) L 12/02/22 04:38 Eosinophils % (Manual) 3 % (0-6) 12/02/22 04:38 Metamyelocytes % 4 12/01/22 05:40 Myelocytes % 1 02/24/23 05:40 Plt Morphology Comment Normal (NORMAL) 12/02/22 04:38 RBC Morphology Normal (NORMAL) 12/02/22 04:38 Rusty Cells Slight A 12/01/22 05:40 Sodium 138 mmol/L (136-145) 12/02/22 04:38 Corrected Sodium TNP 12/02/22 04:38 Potassium 4.3 mmol/L (3.5-5.1) 12/02/22 04:38 Chloride 110 mmol/L (98-107) H 12/02/22 04:38 Carbon Dioxide 18.9 mmol/L (21-32) L 12/02/22 04:38 BUN 41 mg/dL (7-18) H 12/02/22 04:38 Creatinine 1.62 mg/dL (0.55-1.02) H 12/02/22 04:38 Est GFR (MDRD) Af Amer 40 (>60) L 12/02/22 04:38 Est GFR (MDRD) Non-Af 33 (>60) L 12/02/22 04:38 Glucose 100 mg/dL (65-99) H 12/02/22 04:38 Lactic Acid 1.8 mmol/L (0.4-2.0) 11/30/22 15:12 Calcium 6.7 mg/dL (8.5-10.1) L 12/02/22 04:38 Corrected Calcium 8.7 mg/dL (8.5-10.1) 12/02/22 04:38 Magnesium 1.6 mg/dL (2.0-2.9) L 12/02/22 04:38 Total Bilirubin 0.30 mg/dL (0.2-1.0) 12/02/22 04:38 AST 31 Units/L (15-37) 12/02/22 04:38 ALT 27 Units/L (12-78) 12/02/22 04:38 Alkaline Phosphatase 135 Units/L (46-116) H 12/02/22 04:38 Total Protein 4.1 g/dL (6.4-8.2) L 12/02/22 04:38 Albumin 1.5 g/dL (3.4-5.0) L 12/02/22 04:38 Globulin 2.6 g/dL (2.5-4.5) 12/02/22 04:38 Albumin/Globulin Ratio 0.6 Ratio (1.1-2.1) L 12/02/22 04:38 Tissue Pathology To follow 12/01/22 13:25 Assessment and Plan 1: colon gangrene and ischemia . s/p subtotal colectomy , ileostomy . PO care , TPN , ABT , OOB with binder , may have ice and water , DVT prophylaxis .
[2022-12-02] MEDS: MORPHINE SULFATE INJ 2 MG INJ IVP PRN ×2 (08:46→20:07)
[2022-12-02] MEDS: CIPRO IV 400 MG PREMIX* 400 MG/200 ML IV.SOLN. IV SCH ×2 (09:00→21:16)
[2022-12-02] MEDS ORDERED: PHARMACY CONSULT - TPN XX SCH (09:00)
[2022-12-02] MEDS ORDERED: CARDIZEM CD 120 MG 24-HR PO SCH (09:00)
[2022-12-02] MEDS: SYNTHROID 25 mcg TAB PO SCH (09:01)
[2022-12-02] MEDS: LOVENOX INJ 40 MG SYR SC SCH (09:01)
[2022-12-02] MEDS: PROTONIX INJ 40 MG VIAL IVP SCH ×2 (09:15→21:16)
[2022-12-02 10:37] VITALS: BMI 29.2
[2022-12-02] MEDS ORDERED: DRUG FILTER EXTENSION SET ONE ×2 (11:20→23:58)
--- NOTE | 2022-12-02 11:27 | PCM.PROG ---
Progress Note Progress Note for Day of Date of Exam: 12/02/22 Subjective Subjective: Pt is a 77 year old female s/p subtotal colectomy, ileostomy. This morning she is resting in bed. No acute events overnight. She is followed by general surgery-Dr Cosby. Labs: Wbc 7.3, Hgb 9.8, Plt 114, Na 138, K 4.3, Creatinine 1.62, Glucose 100. Pt will be started on TPN nutrition, can start ice and water, and instructions were given out of bed as tolerated. Otherwise, will continue with current treatment plan. Continue to closely monitor and follow up labs in the morning. Past Medical Family Social History Allergies: Allergies tramadol Allergy (Verified 11/29/22 16:59) amoxicillin [From Amoxil] Adverse Reaction (Severe, Verified 11/29/22 16:58) ANAPHALEXIS REACTION Review of Systems ROS: No change since H&P ROS changes noted: see HPI Vital Signs and I&O's Vital Signs: Temperature 98.4 F Pulse Rate [Left Radial] 89 Pulse Rate 85 Respiratory Rate 16 Blood Pressure [Left Arm] 94/51 Blood Pressure 94/52 O2 Sat by Pulse Oximetry 97 Intake and Output: Intake & Output 11/29/22 11/30/22 12/01/22 12/02/22 23:59 23:59 23:59 23:59 Intake Total 1600 / 1600 3597 / 3597 5821 / 5821 682 / 682 Output Total 425 / 425 995 / 995 3875 / 3875 335 / 335 Balance 1175 / 1175 2602 / 2602 1946 / 1946 347 / 347 Physical Exam Oriented: Normal, Time, Person and Place Eyes: Normal Ear: Normal Nose: Normal Respiratory: Normal Cardiovascular: Normal Auscultation: Bowel Sounds: Normal Tenderness: Periumbilical Skin: Decreased Turgur Psychiatric: Normal Mood Description: Calm Affect: Normal Laboratory and Diagnostics Result Diagrams: 12/02/22 04:38 12/02/22 04:38 Labs: 12/01/22 12:45 Abdomen Wound Gram Stain - Final 12/01/22 12:45 Abdomen Wound Culture - Preliminary Laboratory WBC 7.3 X10^3/uL (3.6-10.0) 12/02/22 04:38 RBC 3.28 X10^6/uL (3.5-5.4) L 12/02/22 04:38 Hgb 9.8 g/dL (12.0-16.0) L 12/02/22 04:38 Hct 29.4 % (36.0-47.0) L 12/02/22 04:38 MCV 89.5 fL (80.0-100.0) 12/02/22 04:38 MCH 29.8 pg (27.0-34.0) 12/02/22 04:38 MCHC 33.3 g/dL (33.0-35.0) 12/02/22 04:38 RDW 14.6 % (11.6-16.5) 12/02/22 04:38 Plt Count 114 X10^3/uL (150.0-450.0) L 12/02/22 04:38 Plt Count Comment Decreased (ADEQUATE) A 12/02/22 04:38 MPV 10.5 fL (7.4-11.0) 12/02/22 04:38 Neut % (Auto) 80.7 % (42.0-75.0) H 12/02/22 04:38 Lymph % (Auto) 13.3 % (21.0-51.0) L 12/02/22 04:38 [place] % (Auto) 4.3 % (0.0-13.0) 12/02/22 04:38 Eos % (Auto) 1.4 % (0.9-2.9) 12/02/22 04:38 Baso % (Auto) 0.3 % (0.2-1.0) 12/02/22 04:38 Neut # (Auto) 5.9 x10^3/uL (2.2-4.8) H 12/02/22 04:38 Lymph # (Auto) 1.0 X10^3/uL (1.3-2.9) L 12/02/22 04:38 [place] # (Auto) 0.3 x10^3/uL (0.3-0.8) 12/02/22 04:38 Eos # (Auto) 0.1 x10^3/uL (0.0-0.2) 12/02/22 04:38 Baso # (Auto) 0.0 X10^3/uL (0.0-0.1) 12/02/22 04:38 Absolute Nucleated RBC 0.0 /100WBC 12/02/22 04:38 Total Counted 100 12/02/22 04:38 Neutrophils % (Manual) 78 % (39-76) H 12/02/22 04:38 Band Neutrophils % 7 % (0-10) 12/02/22 04:38 Lymphocytes % (Manual) 10 % (13-43) L 12/02/22 04:38 Monocytes % (Manual) 2 % (4-9) L 12/02/22 04:38 Eosinophils % (Manual) 3 % (0-6) 12/02/22 04:38 Metamyelocytes % 4 12/01/22 05:40 Myelocytes % 1 12/01/22 05:40 Plt Morphology Comment Normal (NORMAL) 12/02/22 04:38 RBC Morphology Normal (NORMAL) 12/02/22 04:38 [place] Cells Slight A 12/01/22 05:40 Sodium 138 mmol/L (136-145) 12/02/22 04:38 Corrected Sodium TNP 12/02/22 04:38 Potassium 4.3 mmol/L (3.5-5.1) 12/02/22 04:38 Chloride 110 mmol/L (98-107) H 12/02/22 04:38 Carbon Dioxide 18.9 mmol/L (21-32) L 12/02/22 04:38 BUN 41 mg/dL (7-18) H 12/02/22 04:38 Creatinine 1.62 mg/dL (0.55-1.02) H 12/02/22 04:38 Est GFR (MDRD) Af Amer 40 (>60) L 12/02/22 04:38 Est GFR (MDRD) Non-Af 33 (>60) L 12/02/22 04:38 Glucose 100 mg/dL (65-99) H 12/02/22 04:38 Lactic Acid 1.8 mmol/L (0.4-2.0) 11/30/22 15:12 Calcium 6.7 mg/dL (8.5-10.1) L 12/02/22 04:38 Corrected Calcium 8.7 mg/dL (8.5-10.1) 12/02/22 04:38 Magnesium 1.6 mg/dL (2.0-2.9) L 12/02/22 04:38 Total Bilirubin 0.30 mg/dL (0.2-1.0) 12/02/22 04:38 AST 31 Units/L (15-37) 12/02/22 04:38 ALT 27 Units/L (12-78) 12/02/22 04:38 Alkaline Phosphatase 135 Units/L (46-116) H 12/02/22 04:38 Total Protein 4.1 g/dL (6.4-8.2) L 12/02/22 04:38 Albumin 1.5 g/dL (3.4-5.0) L 12/02/22 04:38 Globulin 2.6 g/dL (2.5-4.5) 12/02/22 04:38 Albumin/Globulin Ratio 0.6 Ratio (1.1-2.1) L 12/02/22 04:38 Tissue Pathology To follow 12/01/22 13:25 Plan (1) Abdominal pain: Status: Acute Plan: Continue morphine for pain control. Exploratory laparotomy this morning. (2) Nausea & vomiting: Status: Acute Plan: Continue as needed Zofran. (3) Hypertension: Status: Acute (4) Hypothyroidism: Status: Acute Plan: Hold p.o. levothyroxine at this time. (5) GERD (gastroesophageal reflux disease): Status: Acute Plan: Continue IV Protonix. (6) Dehydration: Status: Acute Plan: Continue IV hydration. (7) Acute kidney failure: Status: Acute
[2022-12-02] MEDS: MAGNESIUM SULFATE IV SCH ×2 (11:59)
[2022-12-02] MEDS: CLINIMIX IV SCH ×2 (11:59)
--- NOTE | 2022-12-02 18:36 | CT ---
EXAM: HEAD CT WITHOUT INTRAVENOUS CONTRASTHISTORY: Altered mental status.TECHNIQUE: Spiral axial CT images are obtained through the brain without the administration of intravenous contrast. Additional sagittal and coronal reformatted images are reconstructed.DOSIMETRY: Total DLP 959.64 mGycm; CTDI 48 mGyCOMPARISON: None available.FINDINGS:There are mild patchy parenchymal lucencies within the white matter tracks of the centrum semiovale, consistent with chronic sequela of atherosclerotic microvascular ischemic disease. Atherosclerosis of the carotid siphons is seen. Consider follow-up MRA as clinically warranted.There is diffuse cerebral cortical atrophy. The centrum semiovale, basal ganglia, cerebellum, and brainstem are otherwise grossly unremarkable for a noncontrast CT scan. There is no acute intracranial hemorrhage, gross acute infarction, mass lesion, midline shift, or hydrocephalus seen. No extra-axial mass or abnormal fluid collection noted.The calvarium is intact. The partially imaged paranasal sinuses, middle ear cavities and mastoid air cells are clear.IMPRESSION:1. Mild chronic microvascular ischemic disease, but no discernible acute infarction seen. Consider followup MRI with diffusion-weighted imaging to rule out occult acute infarction if clinically warranted.2. Atherosclerosis of the carotid siphons is seen. Consider follow-up MRA as clinically warranted.3. No skull fracture, intracranial hemorrhage, mass lesion, midline shift, or hydrocephalus seen.Electronically signed by: Douglas Powell (Dec 02, 2022 18:34:51)
[2022-12-02] MEDS: CYMBALTA PO SCH (21:23)
[2022-12-03] MEDS: D5 1/2 NS 1,000 ML 1,000 ML IV SCH ×4 (00:25→20:10)
[2022-12-03] MEDS: FLAGYL IV PREMIX 500 MG BAG 500 MG/100 ML BAG IV SCH ×2 (01:32→09:07)
[2022-12-03] MEDS: CLINIMIX IV SCH ×5 (01:32→13:21)
[2022-12-03] MEDS: MAGNESIUM SULFATE IV SCH ×5 (01:32→13:21)
[2022-12-03] MEDS: MORPHINE SULFATE INJ 2 MG INJ IVP PRN ×2 (02:21→06:47)
[2022-12-03] MEDS: DILAUDID INJ IVP PRN ×4 (04:01→20:07)
[2022-12-03 05:06] LABS: BASOPHILS % (AUTO) 0.2 % (0.2-1.0); EOSINOPHILS # (AUTO) 0.2 x10^3/uL (0.0-0.2); EOSINOPHILS % (AUTO) 2.4 % (0.9-2.9); HEMATOCRIT 26.5 % (36.0-47.0); HEMOGLOBIN 8.9 g/dL (12.0-16.0); LYMPHOCYTES # (AUTO) 0.7 X10^3/uL (1.3-2.9); LYMPHOCYTES % (AUTO) 8.4 % (21.0-51.0); MEAN CORPUSCULAR HGB CONC 33.6 g/dL (33.0-35.0); MEAN PLATELET VOLUME 10.2 fL (7.4-11.0); MONOCYTES # (AUTO) 0.5 x10^3/uL (0.3-0.8); MONOCYTES % (AUTO) 6.7 % (0.0-13.0); NEUTROPHILS # (AUTO) 6.5 x10^3/uL (2.2-4.8); NEUTROPHILS % (AUTO) 82.3 % (42.0-75.0); RED BLOOD COUNT 2.98 X10^6/uL (3.5-5.4); RED CELL DISTRIBUTION WIDTH 14.7 % (11.6-16.5); WHITE BLOOD COUNT 7.8 X10^3/uL (3.6-10.0)
[2022-12-03 05:26] LABS: ALANINE AMINOTRANSFERASE 23 Units/L (12-78); ALBUMIN 1.4 g/dL (3.4-5.0); ALKALINE PHOSPHATASE 121 Units/L (46-116); ASPARTATE AMINO TRANSFERASE 24 Units/L (15-37); BLOOD UREA NITROGEN 28 mg/dL (7-18); CALCIUM 7.3 mg/dL (8.5-10.1); CARBON DIOXIDE 23.2 mmol/L (21-32); CHLORIDE 110 mmol/L (98-107); COR CA(FOR HYPOALB) 9.4 mg/dL (8.5-10.1); COR NA(FOR HYPERGLY) 143 mmol/L (136-145); CREATININE 1.13 mg/dL (0.55-1.02); SODIUM 140 mmol/L (136-145); TOTAL PROTEIN 4.1 g/dL (6.4-8.2); eGFR NON BLACK RACES 50 (>60)
[2022-12-03 05:53] LABS: BAND NEUTROPHILS % 4 % (0-10); PLATELET MORPHOLOGY COMMENT NORMAL (NORMAL)
[2022-12-03] MEDS: FORTAZ or TAZICEF VIAL INJ 1 G in NS 100 ML IV 100 ML IV SCH ×2 (05:54→13:22)
--- NOTE | 2022-12-03 08:55 | DR.PROGNOT ---
HOSPITAL PROGRESS NOTE Progress Note for Day of: Progress Note Date: 12/03/22 Chief Complaint Chief Complaint: PO sub total colectomy , ileostomy for gangrenous colon . confused and agitated . mild improvement of renal function. stool in ileostomy bag . Past Medical Family Social History Allergies: Allergies tramadol Allergy (Verified 11/29/22 16:59) amoxicillin [From Amoxil] Adverse Reaction (Severe, Verified 11/29/22 16:58) ANAPHALEXIS REACTION Review Of Systems ROS: No change since H&P Changes in ROS: see HPI Vital Signs Vital Signs: Temperature 98.2 F Pulse Rate [Left Radial] 89 Pulse Rate 98 Respiratory Rate 26 Blood Pressure [Left Arm] 94/51 Blood Pressure 115/59 O2 Sat by Pulse Oximetry 86 Physical Exam Oriented: Normal, Time, Person and Place Eyes: Normal Ear: Normal Nose: Normal Respiratory: Normal Cardiovascular: Normal GI:Auscultation: Normal GI:Palpation: Other (soft abdomen , with diffuse tenderness . BS hypo active .) GI: Tenderness: Periumbilical Skin: Decreased Turgur Psychiatric: Normal Mood Description: Calm Affect: Normal Speech Pattern: Unclear Laboratory and Diagnostics Result Diagrams: 12/03/22 04:25 12/03/22 04:25 Labs: 12/01/22 12:45 Abdomen Wound Gram Stain - Final 12/01/22 12:45 Abdomen Wound Culture - Preliminary Laboratory WBC 7.8 X10^3/uL (3.6-10.0) 12/03/22 04:25 RBC 2.98 X10^6/uL (3.5-5.4) L 12/03/22 04:25 Hgb 8.9 g/dL (12.0-16.0) L 12/03/22 04:25 Hct 26.5 % (36.0-47.0) L 12/03/22 04:25 MCV 89.0 fL (80.0-100.0) 12/03/22 04:25 MCH 30.0 pg (27.0-34.0) 12/03/22 04:25 MCHC 33.6 g/dL (33.0-35.0) 12/03/22 04:25 RDW 14.7 % (11.6-16.5) 12/03/22 04:25 Plt Count 103 X10^3/uL (150.0-450.0) L 12/03/22 04:25 Plt Count Comment Decreased (ADEQUATE) A 12/03/22 04:25 MPV 10.2 fL (7.4-11.0) 12/03/22 04:25 Neut % (Auto) 82.3 % (42.0-75.0) H 12/03/22 04:25 Lymph % (Auto) 8.4 % (21.0-51.0) L 12/03/22 04:25 [place] % (Auto) 6.7 % (0.0-13.0) 12/03/22 04:25 Eos % (Auto) 2.4 % (0.9-2.9) 12/03/22 04:25 Baso % (Auto) 0.2 % (0.2-1.0) 12/03/22 04:25 Neut # (Auto) 6.5 x10^3/uL (2.2-4.8) H 12/03/22 04:25 Lymph # (Auto) 0.7 X10^3/uL (1.3-2.9) L 12/03/22 04:25 [place] # (Auto) 0.5 x10^3/uL (0.3-0.8) 12/03/22 04:25 Eos # (Auto) 0.2 x10^3/uL (0.0-0.2) 12/03/22 04:25 Baso # (Auto) 0.0 X10^3/uL (0.0-0.1) 12/03/22 04:25 Absolute Nucleated RBC 0.0 /100WBC 12/03/22 04:25 Total Counted 100 12/03/22 04:25 Neutrophils % (Manual) 79 % (39-76) H 12/03/22 04:25 Band Neutrophils % 4 % (0-10) 12/03/22 04:25 Lymphocytes % (Manual) 11 % (13-43) L 12/03/22 04:25 Monocytes % (Manual) 5 % (4-9) 12/03/22 04:25 Eosinophils % (Manual) 1 % (0-6) 12/03/22 04:25 Metamyelocytes % 4 12/01/22 05:40 Myelocytes % 1 12/01/22 05:40 Plt Morphology Comment Normal (NORMAL) 12/03/22 04:25 RBC Morphology Normal (NORMAL) 12/03/22 04:25 [place] Cells Slight A 12/01/22 05:40 Sodium 140 mmol/L (136-145) 12/03/22 04:25 Corrected Sodium 143 mmol/L (136-145) 12/03/22 04:25 Potassium 3.3 mmol/L (3.5-5.1) L 12/03/22 04:25 Chloride 110 mmol/L (98-107) H 12/03/22 04:25 Carbon Dioxide 23.2 mmol/L (21-32) 12/03/22 04:25 BUN 28 mg/dL (7-18) H 12/03/22 04:25 Creatinine 1.13 mg/dL (0.55-1.02) H 12/03/22 04:25 Est GFR (MDRD) Af Amer > 60 (>60) 12/03/22 04:25 Est GFR (MDRD) Non-Af 50 (>60) L 12/03/22 04:25 Glucose 223 mg/dL (65-99) H 12/03/22 04:25 Lactic Acid 1.8 mmol/L (0.4-2.0) 11/30/22 15:12 Calcium 7.3 mg/dL (8.5-10.1) L 12/03/22 04:25 Corrected Calcium 9.4 mg/dL (8.5-10.1) 12/03/22 04:25 Magnesium 2.2 mg/dL (2.0-2.9) 12/03/22 04:25 Total Bilirubin 0.20 mg/dL (0.2-1.0) 12/03/22 04:25 AST 24 Units/L (15-37) 12/03/22 04:25 ALT 23 Units/L (12-78) 12/03/22 04:25 Alkaline Phosphatase 121 Units/L (46-116) H 12/03/22 04:25 Total Protein 4.1 g/dL (6.4-8.2) L 12/03/22 04:25 Albumin 1.4 g/dL (3.4-5.0) L 12/03/22 04:25 Globulin 2.7 g/dL (2.5-4.5) 12/03/22 04:25 Albumin/Globulin Ratio 0.5 Ratio (1.1-2.1) L 12/03/22 04:25 Tissue Pathology To follow 12/01/22 13:25 Assessment and Plan 1: colon gangrene and ischemia . s/p subtotal colectomy , ileostomy . post op confusion and agitation . PO care , TPN , ABT , OOB with binder , may have ice and water , DVT prophylaxis .
[2022-12-03] MEDS: CIPRO IV 400 MG PREMIX* 400 MG/200 ML IV.SOLN. IV SCH (09:07)
[2022-12-03] MEDS: LOVENOX INJ 40 MG SYR SC SCH (09:08)
[2022-12-03] MEDS: ALBUMIN HUMAN 25%- 100 ML 100 ML IV SCH (09:08)
[2022-12-03] MEDS: PROTONIX INJ 40 MG VIAL IVP SCH ×2 (09:09→21:55)
[2022-12-03] MEDS: SYNTHROID INJ 100 mcg VIAL IV SCH (09:33)
[2022-12-03] MEDS ORDERED: MORPHINE SULFATE INJ 2 MG INJ IVP PRN (10:41)
--- NOTE | 2022-12-03 12:24 | PCM.PROG ---
Progress Note Progress Note for Day of Date of Exam: 12/03/22 Subjective Subjective: Pt is a 77 year old female s/p subtotal colectomy, ileostomy. This morning she is confused and agitated. Per surgery possibly related to post-op confusion. She is followed by general surgery-Dr Cosby. Labs: Wbc 7.8, Hgb 8.9, Plt 103, Na 140, K 3.3, Creatinine 1.13, Glucose 223. CT head no acute intracranial abnormalities. Pt is currently on TPN nutrition, ice and water, and instructions were given out of bed as tolerated. Will discontinue dilaudid and increase morphine for management of pain. Otherwise, will continue with current treatment plan. Continue to closely monitor and follow up labs in the morning. Past Medical Family Social History Allergies: Allergies tramadol Allergy (Verified 11/29/22 16:59) amoxicillin [From Amoxil] Adverse Reaction (Severe, Verified 11/29/22 16:58) ANAPHALEXIS REACTION Review of Systems ROS: No change since H&P Vital Signs and I&O's Vital Signs: Temperature 98.2 F Pulse Rate [Left Radial] 89 Pulse Rate 98 Respiratory Rate 26 Blood Pressure [Left Arm] 94/51 Blood Pressure 115/59 O2 Sat by Pulse Oximetry 86 Intake and Output: Intake & Output 11/30/22 12/01/22 12/02/22 12/03/22 23:59 23:59 23:59 23:59 Intake Total 3597 / 3597 5821 / 5821 2686 / 2686 1236 / 1236 Output Total 995 / 995 3875 / 3875 1950 / 1950 1115 / 1115 Balance 2602 / 2602 1946 / 1946 736 / 736 121 / 121 Physical Exam Oriented: Normal, Time, Person and Place Eyes: Normal Ear: Normal Nose: Normal Respiratory: Normal Cardiovascular: Normal Auscultation: Bowel Sounds: Normal Tenderness: Periumbilical Skin: Decreased Turgur Psychiatric: Normal Mood Description: Calm Affect: Normal Speech Pattern: Unclear Laboratory and Diagnostics Result Diagrams: 12/03/22 04:25 12/03/22 04:25 Labs: 12/01/22 12:45 Abdomen Wound Gram Stain - Final 12/01/22 12:45 Abdomen Wound Culture - Preliminary Laboratory WBC 7.8 X10^3/uL (3.6-10.0) 12/03/22 04:25 RBC 2.98 X10^6/uL (3.5-5.4) L 12/03/22 04:25 Hgb 8.9 g/dL (12.0-16.0) L 12/03/22 04:25 Hct 26.5 % (36.0-47.0) L 12/03/22 04:25 MCV 89.0 fL (80.0-100.0) 12/03/22 04:25 MCH 30.0 pg (27.0-34.0) 12/03/22 04:25 MCHC 33.6 g/dL (33.0-35.0) 12/03/22 04:25 RDW 14.7 % (11.6-16.5) 12/03/22 04:25 Plt Count 103 X10^3/uL (150.0-450.0) L 12/03/22 04:25 Plt Count Comment Decreased (ADEQUATE) A 12/03/22 04:25 MPV 10.2 fL (7.4-11.0) 12/03/22 04:25 Neut % (Auto) 82.3 % (42.0-75.0) H 12/03/22 04:25 Lymph % (Auto) 8.4 % (21.0-51.0) L 12/03/22 04:25 Angelina % (Auto) 6.7 % (0.0-13.0) 12/03/22 04:25 Eos % (Auto) 2.4 % (0.9-2.9) 12/03/22 04:25 Baso % (Auto) 0.2 % (0.2-1.0) 12/03/22 04:25 Neut # (Auto) 6.5 x10^3/uL (2.2-4.8) H 12/03/22 04:25 Lymph # (Auto) 0.7 X10^3/uL (1.3-2.9) L 12/03/22 04:25 Angelina # (Auto) 0.5 x10^3/uL (0.3-0.8) 12/03/22 04:25 Eos # (Auto) 0.2 x10^3/uL (0.0-0.2) 12/03/22 04:25 Baso # (Auto) 0.0 X10^3/uL (0.0-0.1) 12/03/22 04:25 Absolute Nucleated RBC 0.0 /100WBC 12/03/22 04:25 Total Counted 100 12/03/22 04:25 Neutrophils % (Manual) 79 % (39-76) H 12/03/22 04:25 Band Neutrophils % 4 % (0-10) 12/03/22 04:25 Lymphocytes % (Manual) 11 % (13-43) L 12/03/22 04:25 Monocytes % (Manual) 5 % (4-9) 12/03/22 04:25 Eosinophils % (Manual) 1 % (0-6) 12/03/22 04:25 Metamyelocytes % 4 12/01/22 05:40 Myelocytes % 1 12/01/22 05:40 Plt Morphology Comment Normal (NORMAL) 12/03/22 04:25 RBC Morphology Normal (NORMAL) 12/03/22 04:25 Rusty Cells Slight A 12/01/22 05:40 Sodium 140 mmol/L (136-145) 12/03/22 04:25 Corrected Sodium 143 mmol/L (136-145) 12/03/22 04:25 Potassium 3.3 mmol/L (3.5-5.1) L 12/03/22 04:25 Chloride 110 mmol/L (98-107) H 12/03/22 04:25 Carbon Dioxide 23.2 mmol/L (21-32) 12/03/22 04:25 BUN 28 mg/dL (7-18) H 12/03/22 04:25 Creatinine 1.13 mg/dL (0.55-1.02) H 12/03/22 04:25 Est GFR (MDRD) Af Amer > 60 (>60) 12/03/22 04:25 Est GFR (MDRD) Non-Af 50 (>60) L 12/03/22 04:25 Glucose 223 mg/dL (65-99) H 12/03/22 04:25 Lactic Acid 1.8 mmol/L (0.4-2.0) 11/30/22 15:12 Calcium 7.3 mg/dL (8.5-10.1) L 12/03/22 04:25 Corrected Calcium 9.4 mg/dL (8.5-10.1) 12/03/22 04:25 Magnesium 2.2 mg/dL (2.0-2.9) 12/03/22 04:25 Total Bilirubin 0.20 mg/dL (0.2-1.0) 12/03/22 04:25 AST 24 Units/L (15-37) 12/03/22 04:25 ALT 23 Units/L (12-78) 12/03/22 04:25 Alkaline Phosphatase 121 Units/L (46-116) H 12/03/22 04:25 Total Protein 4.1 g/dL (6.4-8.2) L 12/03/22 04:25 Albumin 1.4 g/dL (3.4-5.0) L 12/03/22 04:25 Globulin 2.7 g/dL (2.5-4.5) 12/03/22 04:25 Albumin/Globulin Ratio 0.5 Ratio (1.1-2.1) L 12/03/22 04:25 Tissue Pathology To follow 12/01/22 13:25 Plan (1) Abdominal pain: Status: Acute Plan: Continue morphine for pain control. Exploratory laparotomy this morning. (2) Nausea & vomiting: Status: Acute Plan: Continue as needed Zofran. (3) Hypertension: Status: Acute (4) Hypothyroidism: Status: Acute Plan: Hold p.o. levothyroxine at this time. (5) GERD (gastroesophageal reflux disease): Status: Acute Plan: Continue IV Protonix. (6) Dehydration: Status: Acute Plan: Continue IV hydration. (7) Acute kidney failure: Status: Acute Plan: I will give the patient a bolus of 500 mL normal saline x1 this morning.
[2022-12-03] MEDS: [UNRECOGNIZED DRUG - OTHER] IV SCH ×3 (13:21)
[2022-12-03] MEDS ORDERED: DILAUDID INJ ONE (13:50)
--- NOTE | 2022-12-03 15:05 | RAD ---
HISTORYPostopSTUDYPortable AP chestCOMPARISONFebruary 2022FINDINGSSimilar cardiomegaly with bilateralLower lobe infiltrates. There is no large pleural effusion demonstrated and no definite pneumothorax or extrapulmonary air. Right PICC again noted with interval removal of NG tube.IMPRESSIONPersistent cardiac prominence with bilateral infiltrates consistent with pneumonia.Electronically signed by: ARLETTE HEIN (Dec 03, 2022 15:04:48)
[2022-12-03] MEDS ORDERED: ATIVAN INJ 2 MG VIAL ONE (17:26)
[2022-12-03] MEDS: ATIVAN INJ 2 MG VIAL IVP PRN (17:38)
[2022-12-03] MEDS: XOPENEX 1.25 MG/3 ML NEBULE NEB SCH (20:38)
[2022-12-03] MEDS: ZOSYN VIAL 4.5 GRAMS 4.5 G in NS 100 ML IV + SPIKE MINIBAG* 100 ML IV SCH ×2 (21:55→22:05)
[2022-12-03] MEDS: CYMBALTA PO SCH (21:55)
[2022-12-03] MEDS ORDERED: ZOSYN VIAL 4.5 GRAMS IV ONE (22:02)
[2022-12-03] MEDS ORDERED: NS 100 ML IV 100 ML ONE (22:02)
[2022-12-04] MEDS: D5 1/2 NS 1,000 ML 1,000 ML IV SCH ×3 (00:07→16:31)
[2022-12-04] MEDS: DILAUDID INJ IVP PRN ×2 (00:08→05:12)
[2022-12-04] MEDS: ATIVAN INJ 2 MG VIAL IVP PRN ×2 (02:22→20:13)
[2022-12-04] MEDS: [UNRECOGNIZED DRUG - OTHER] IV SCH ×9 (03:56→23:51)
[2022-12-04] MEDS: MAGNESIUM SULFATE IV SCH ×9 (03:56→23:51)
[2022-12-04] MEDS: CLINIMIX IV SCH ×9 (03:56→23:51)
[2022-12-04] MEDS ORDERED: NS 100 ML IV 100 ML ONE (05:12)
[2022-12-04] MEDS ORDERED: ZOSYN VIAL 4.5 GRAMS IV ONE (05:12)
[2022-12-04] MEDS: ZOSYN VIAL 4.5 GRAMS 4.5 G in NS 100 ML IV + SPIKE MINIBAG* 100 ML IV SCH (05:18)
[2022-12-04 05:28] LABS: BASOPHILS # (AUTO) 0.1 X10^3/uL (0.0-0.1); BASOPHILS % (AUTO) 0.8 % (0.2-1.0); EOSINOPHILS # (AUTO) 0.1 x10^3/uL (0.0-0.2); EOSINOPHILS % (AUTO) 1.6 % (0.9-2.9); HEMATOCRIT 30.1 % (36.0-47.0); LYMPHOCYTES # (AUTO) 0.5 X10^3/uL (1.3-2.9); LYMPHOCYTES % (AUTO) 6.4 % (21.0-51.0); MEAN CORPUSCULAR HEMOGLOBIN 29.5 pg (27.0-34.0); MEAN CORPUSCULAR HGB CONC 33.1 g/dL (33.0-35.0); MEAN CORPUSCULAR VOLUME 89.3 fL (80.0-100.0); MEAN PLATELET VOLUME 9.8 fL (7.4-11.0); MONOCYTES # (AUTO) 0.9 x10^3/uL (0.3-0.8); MONOCYTES % (AUTO) 12.2 % (0.0-13.0); RED BLOOD COUNT 3.37 X10^6/uL (3.5-5.4); WHITE BLOOD COUNT 7.6 X10^3/uL (3.6-10.0)
[2022-12-04 05:41] LABS: ALANINE AMINOTRANSFERASE 24 Units/L (12-78); ALBUMIN 1.9 g/dL (3.4-5.0); ALKALINE PHOSPHATASE 104 Units/L (46-116); ASPARTATE AMINO TRANSFERASE 23 Units/L (15-37); BLOOD UREA NITROGEN 23 mg/dL (7-18); CARBON DIOXIDE 25.1 mmol/L (21-32); CHLORIDE 110 mmol/L (98-107); COR CA(FOR HYPOALB) 9.7 mg/dL (8.5-10.1); COR NA(FOR HYPERGLY) 143 mmol/L (136-145); CREATININE 0.87 mg/dL (0.55-1.02); SODIUM 141 mmol/L (136-145); TOTAL PROTEIN 4.7 g/dL (6.4-8.2); eGFR NON BLACK RACES > 60 (>60)
[2022-12-04] MEDS: XOPENEX 1.25 MG/3 ML NEBULE NEB SCH ×3 (05:49→20:15)
[2022-12-04 05:56] LABS: BAND NEUTROPHILS % 2 % (0-10); PLATELET MORPHOLOGY COMMENT NORMAL (NORMAL)
--- NOTE | 2022-12-04 08:00 | DR.PROGNOT ---
HOSPITAL PROGRESS NOTE Progress Note for Day of: Progress Note Date: 12/04/22 Chief Complaint Chief Complaint: PO sub total colectomy , ileostomy for gangrenous colon . today Pt is responding only to pain stimuli . moving her arms though . renal function is normal now and making good urine output . stool in ileostomy bag . Past Medical Family Social History Allergies: Allergies tramadol Allergy (Verified 11/29/22 16:59) amoxicillin [From Amoxil] Adverse Reaction (Severe, Verified 11/29/22 16:58) ANAPHALEXIS REACTION Review Of Systems ROS: No change since H&P Changes in ROS: see HPI Vital Signs Vital Signs: Temperature 98.0 F Pulse Rate [Left Radial] 89 Pulse Rate 114 Respiratory Rate 31 Blood Pressure [Left Arm] 94/51 Blood Pressure 127/61 O2 Sat by Pulse Oximetry 99 Physical Exam Oriented: Normal, Time, Person and Place Eyes: Normal Ear: Normal Nose: Normal Respiratory: Normal Cardiovascular: Normal GI:Auscultation: Normal GI:Palpation: Other (soft abdomen , with diffuse tenderness . BS hypo active .) GI: Tenderness: Periumbilical Skin: Decreased Turgur Psychiatric: Normal Mood Description: Calm Affect: Normal Speech Pattern: Unclear Laboratory and Diagnostics Result Diagrams: 12/04/22 04:44 12/04/22 04:44 Labs: 12/01/22 12:45 Abdomen Wound Gram Stain - Final 12/01/22 12:45 Abdomen Wound Culture - Preliminary Laboratory WBC 7.6 X10^3/uL (3.6-10.0) 12/04/22 04:44 RBC 3.37 X10^6/uL (3.5-5.4) L 12/04/22 04:44 Hgb 10.0 g/dL (12.0-16.0) L 12/04/22 04:44 Hct 30.1 % (36.0-47.0) L 12/04/22 04:44 MCV 89.3 fL (80.0-100.0) 12/04/22 04:44 MCH 29.5 pg (27.0-34.0) 12/04/22 04:44 MCHC 33.1 g/dL (33.0-35.0) 12/04/22 04:44 RDW 15.0 % (11.6-16.5) 12/04/22 04:44 Plt Count 111 X10^3/uL (150.0-450.0) L 12/04/22 04:44 Plt Count Comment Decreased (ADEQUATE) A 12/04/22 04:44 MPV 9.8 fL (7.4-11.0) 12/04/22 04:44 Neut % (Auto) 79.0 % (42.0-75.0) H 12/04/22 04:44 Lymph % (Auto) 6.4 % (21.0-51.0) L 12/04/22 04:44 [place] % (Auto) 12.2 % (0.0-13.0) 12/04/22 04:44 Eos % (Auto) 1.6 % (0.9-2.9) 12/04/22 04:44 Baso % (Auto) 0.8 % (0.2-1.0) 12/04/22 04:44 Neut # (Auto) 6.0 x10^3/uL (2.2-4.8) H 12/04/22 04:44 Lymph # (Auto) 0.5 X10^3/uL (1.3-2.9) L 12/04/22 04:44 Gregory # (Auto) 0.9 x10^3/uL (0.3-0.8) H 12/04/22 04:44 Eos # (Auto) 0.1 x10^3/uL (0.0-0.2) 12/04/22 04:44 Baso # (Auto) 0.1 X10^3/uL (0.0-0.1) 12/04/22 04:44 Absolute Nucleated RBC 0.1 /100WBC 12/04/22 04:44 Total Counted 100 12/04/22 04:44 Neutrophils % (Manual) 77 % (39-76) H 12/04/22 04:44 Band Neutrophils % 2 % (0-10) 12/04/22 04:44 Lymphocytes % (Manual) 10 % (13-43) L 12/04/22 04:44 Monocytes % (Manual) 10 % (4-9) H 12/04/22 04:44 Eosinophils % (Manual) 1 % (0-6) 12/04/22 04:44 Metamyelocytes % 4 12/01/22 05:40 Myelocytes % 1 12/01/22 05:40 Plt Morphology Comment Normal (NORMAL) 12/04/22 04:44 RBC Morphology Normal (NORMAL) 12/04/22 04:44 Flanagan Cells Slight A 12/01/22 05:40 Sodium 141 mmol/L (136-145) 12/04/22 04:44 Corrected Sodium 143 mmol/L (136-145) 12/04/22 04:44 Potassium 3.6 mmol/L (3.5-5.1) 12/04/22 04:44 Chloride 110 mmol/L (98-107) H 12/04/22 04:44 Carbon Dioxide 25.1 mmol/L (21-32) 12/04/22 04:44 BUN 23 mg/dL (7-18) H 12/04/22 04:44 Creatinine 0.87 mg/dL (0.55-1.02) 12/04/22 04:44 Est GFR (MDRD) Af Amer > 60 (>60) 12/04/22 04:44 Est GFR (MDRD) Non-Af > 60 (>60) 12/04/22 04:44 Glucose 196 mg/dL (65-99) H 12/04/22 04:44 Lactic Acid 0.8 mmol/L (0.4-2.0) 12/03/22 17:13 Calcium 8.0 mg/dL (8.5-10.1) L 12/04/22 04:44 Corrected Calcium 9.7 mg/dL (8.5-10.1) 12/04/22 04:44 Magnesium 2.2 mg/dL (2.0-2.9) 12/03/22 04:25 Total Bilirubin 0.30 mg/dL (0.2-1.0) 12/04/22 04:44 AST 23 Units/L (15-37) 12/04/22 04:44 ALT 24 Units/L (12-78) 12/04/22 04:44 Alkaline Phosphatase 104 Units/L (46-116) 12/04/22 04:44 Total Protein 4.7 g/dL (6.4-8.2) L 12/04/22 04:44 Albumin 1.9 g/dL (3.4-5.0) L 12/04/22 04:44 Globulin 2.8 g/dL (2.5-4.5) 12/04/22 04:44 Albumin/Globulin Ratio 0.7 Ratio (1.1-2.1) L 12/04/22 04:44 Tissue Pathology To follow 12/01/22 13:25 Assessment and Plan 1: colon gangrene and ischemia . s/p subtotal colectomy , ileostomy . post op confusion and agitation . PO care , TPN , ABT , OOB with binder , DVT prophylaxis .
[2022-12-04] MEDS: PROTONIX INJ 40 MG VIAL IVP SCH ×2 (09:01→21:32)
[2022-12-04] MEDS: LOVENOX INJ 40 MG SYR SC SCH (09:02)
[2022-12-04] MEDS: SYNTHROID INJ 100 mcg VIAL IV SCH (09:02)
[2022-12-04] MEDS: ALBUMIN HUMAN 25%- 100 ML 100 ML IV SCH (09:02)
[2022-12-04] MEDS ORDERED: K-RIDER 10 MEQ/NS 100 ML 10 MEQ/100 ML BAG IV PRN (12:11)
[2022-12-04] MEDS ORDERED: K-DUR TAB 20 MEQ PO PRN (12:11)
[2022-12-04] MEDS: ZOSYN VIAL 4.5 GRAMS 4.5 G in NS 100 ML IV 100 ML IV SCH ×2 (13:40→21:32)
--- NOTE | 2022-12-04 15:18 | RAD ---
CHEST, 1 VIEWHISTORY: HYPOXIA, ACUTE COLITIS, ILUESStudy: Single view of the chest.Comparison:12/03/2022Findings:The cardiomediastinal silhouette is normal. No change in the appearance of bilateral insterstitial and airspace opacities. Osseous structures demonstrate no acute abnormality.IMPRESSION:1. No change from prior.Electronically signed by: TERESA PARSON (Dec 04, 2022 15:15:24)
--- NOTE | 2022-12-04 15:55 | PCM.PROG ---
Progress Note Progress Note for Day of Date of Exam: 12/04/22 Subjective Subjective: Pt is a 77 year old female s/p subtotal colectomy, ileostomy. This morning she is not arousable. Her pupils are constricted and nonreactive. However this could be because of the Dilaudid she received for pain control earlier. Yesterday they said stopped the morphine because it was not co ntrolling her pain. I want to see if patient will be coming around far as her mental status later today. We will use morphine for pain control. She did have a CT scan of the brain over the weekend that did not show any acute problems. Past Medical Family Social History Allergies: Allergies tramadol Allergy (Verified 11/29/22 16:59) amoxicillin [From Amoxil] Adverse Reaction (Severe, Verified 11/29/22 16:58) ANAPHALEXIS REACTION Review of Systems ROS: No change since H&P Vital Signs and I&O's Vital Signs: Temperature 98.6 F Pulse Rate [Left Radial] 89 Pulse Rate 129 Respiratory Rate 23 Blood Pressure [Left Arm] 94/51 Blood Pressure 165/72 O2 Sat by Pulse Oximetry 94 Intake and Output: Intake & Output 12/02/22 12/03/22 12/04/22 12/05/22 11:59 11:59 11:59 11:59 Intake Total 5920 / 5920 3240 / 3240 2962 / 2962 Output Total 3360 / 3360 2730 / 2730 3550 / 3550 Balance 2560 / 2560 510 / 510 -588 / -588 Physical Exam Oriented: Normal, Time, Person and Place Eyes: Normal Ear: Normal Nose: Normal Respiratory: Rhonchi Cardiovascular: Normal Auscultation: Bowel Sounds: Normal Tenderness: Periumbilical Skin: Decreased Turgur Psychiatric: Normal Mood Description: Calm Affect: Normal Speech Pattern: Unclear Laboratory and Diagnostics Result Diagrams: 12/04/22 04:44 12/04/22 04:44 Labs: 12/01/22 12:45 Abdomen Wound Gram Stain - Final 12/01/22 12:45 Abdomen Wound Culture - Final Laboratory WBC 7.6 X10^3/uL (3.6-10.0) 12/04/22 04:44 RBC 3.37 X10^6/uL (3.5-5.4) L 12/04/22 04:44 Hgb 10.0 g/dL (12.0-16.0) L 12/04/22 04:44 Hct 30.1 % (36.0-47.0) L 12/04/22 04:44 MCV 89.3 fL (80.0-100.0) 12/04/22 04:44 MCH 29.5 pg (27.0-34.0) 12/04/22 04:44 MCHC 33.1 g/dL (33.0-35.0) 12/04/22 04:44 RDW 15.0 % (11.6-16.5) 12/04/22 04:44 Plt Count 111 X10^3/uL (150.0-450.0) L 12/04/22 04:44 Plt Count Comment Decreased (ADEQUATE) A 12/04/22 04:44 MPV 9.8 fL (7.4-11.0) 12/04/22 04:44 Neut % (Auto) 79.0 % (42.0-75.0) H 12/04/22 04:44 Lymph % (Auto) 6.4 % (21.0-51.0) L 12/04/22 04:44 [place] % (Auto) 12.2 % (0.0-13.0) 12/04/22 04:44 Eos % (Auto) 1.6 % (0.9-2.9) 12/04/22 04:44 Baso % (Auto) 0.8 % (0.2-1.0) 12/04/22 04:44 Neut # (Auto) 6.0 x10^3/uL (2.2-4.8) H 12/04/22 04:44 Lymph # (Auto) 0.5 X10^3/uL (1.3-2.9) L 12/04/22 04:44 [place] # (Auto) 0.9 x10^3/uL (0.3-0.8) H 12/04/22 04:44 Eos # (Auto) 0.1 x10^3/uL (0.0-0.2) 12/04/22 04:44 Baso # (Auto) 0.1 X10^3/uL (0.0-0.1) 12/04/22 04:44 Absolute Nucleated RBC 0.1 /100WBC 12/04/22 04:44 Total Counted 100 12/04/22 04:44 Neutrophils % (Manual) 77 % (39-76) H 12/04/22 04:44 Band Neutrophils % 2 % (0-10) 12/04/22 04:44 Lymphocytes % (Manual) 10 % (13-43) L 12/04/22 04:44 Monocytes % (Manual) 10 % (4-9) H 12/04/22 04:44 Eosinophils % (Manual) 1 % (0-6) 12/04/22 04:44 Metamyelocytes % 4 12/01/22 05:40 Myelocytes % 1 12/01/22 05:40 Plt Morphology Comment Normal (NORMAL) 12/04/22 04:44 RBC Morphology Normal (NORMAL) 12/04/22 04:44 [place] Cells Slight A 12/01/22 05:40 Sodium 141 mmol/L (136-145) 12/04/22 04:44 Corrected Sodium 143 mmol/L (136-145) 12/04/22 04:44 Potassium 3.6 mmol/L (3.5-5.1) 12/04/22 04:44 Chloride 110 mmol/L (98-107) H 12/04/22 04:44 Carbon Dioxide 25.1 mmol/L (21-32) 12/04/22 04:44 BUN 23 mg/dL (7-18) H 12/04/22 04:44 Creatinine 0.87 mg/dL (0.55-1.02) 12/04/22 04:44 Est GFR (MDRD) Af Amer > 60 (>60) 12/04/22 04:44 Est GFR (MDRD) Non-Af > 60 (>60) 12/04/22 04:44 Glucose 196 mg/dL (65-99) H 12/04/22 04:44 Lactic Acid 0.8 mmol/L (0.4-2.0) 12/03/22 17:13 Calcium 8.0 mg/dL (8.5-10.1) L 12/04/22 04:44 Corrected Calcium 9.7 mg/dL (8.5-10.1) 12/04/22 04:44 Magnesium 2.2 mg/dL (2.0-2.9) 12/03/22 04:25 Total Bilirubin 0.30 mg/dL (0.2-1.0) 12/04/22 04:44 AST 23 Units/L (15-37) 12/04/22 04:44 ALT 24 Units/L (12-78) 12/04/22 04:44 Alkaline Phosphatase 104 Units/L (46-116) 12/04/22 04:44 Total Protein 4.7 g/dL (6.4-8.2) L 12/04/22 04:44 Albumin 1.9 g/dL (3.4-5.0) L 12/04/22 04:44 Globulin 2.8 g/dL (2.5-4.5) 12/04/22 04:44 Albumin/Globulin Ratio 0.7 Ratio (1.1-2.1) L 12/04/22 04:44 Tissue Pathology To follow 12/01/22 13:25 Radiology Reviewed: Yes Plan (1) Altered mental status: Status: Acute Plan: Wean the patient off Dilaudid and change her pain medicine the morphine to see if she becomes more alert today. (2) Bilateral pneumonia: Status: Acute (3) Nausea & vomiting: Status: Resolved Plan: Continue as needed Zofran. (4) Abdominal pain: Status: Acute Plan: Continue morphine for pain control. Exploratory laparotomy this morning. (5) Hypertension: Status: Acute (6) Hypothyroidism: Status: Acute Plan: Hold p.o. levothyroxine at this time. (7) GERD (gastroesophageal reflux disease): Status: Acute Plan: Continue IV Protonix. (8) Dehydration: Status: Resolved Plan: Continue IV hydration. (9) Acute kidney failure: Status: Resolved Plan: I will give the patient a bolus of 500 mL normal saline x1 this morning.
[2022-12-04] MEDS ORDERED: DRUG FILTER EXTENSION SET ONE (19:40)
[2022-12-04] MEDS: CYMBALTA PO SCH (21:33)
[2022-12-04] MEDS: MORPHINE SULFATE INJ 2 MG INJ IVP PRN (23:51)
[2022-12-05] MEDS: D5 1/2 NS 1,000 ML 1,000 ML IV SCH ×3 (01:23→18:20)
[2022-12-05] MEDS ORDERED: ATIVAN INJ 2 MG VIAL IVP ONE ×2 (01:35→07:56)
[2022-12-05] MEDS ORDERED: ATIVAN INJ 2 MG VIAL ONE (01:37)
[2022-12-05 04:50] LABS: BASOPHILS % (AUTO) 0.2 % (0.2-1.0); EOSINOPHILS % (AUTO) 0.4 % (0.9-2.9); HEMATOCRIT 26.8 % (36.0-47.0); LYMPHOCYTES # (AUTO) 1.1 X10^3/uL (1.3-2.9); LYMPHOCYTES % (AUTO) 9.5 % (21.0-51.0); MEAN CORPUSCULAR HEMOGLOBIN 29.6 pg (27.0-34.0); MEAN CORPUSCULAR HGB CONC 33.5 g/dL (33.0-35.0); MEAN CORPUSCULAR VOLUME 88.5 fL (80.0-100.0); MEAN PLATELET VOLUME 9.6 fL (7.4-11.0); MONOCYTES # (AUTO) 1.4 x10^3/uL (0.3-0.8); MONOCYTES % (AUTO) 12.7 % (0.0-13.0); NEUTROPHILS # (AUTO) 8.6 x10^3/uL (2.2-4.8); NEUTROPHILS % (AUTO) 77.2 % (42.0-75.0); RED BLOOD COUNT 3.03 X10^6/uL (3.5-5.4); RED CELL DISTRIBUTION WIDTH 14.3 % (11.6-16.5); WHITE BLOOD COUNT 11.1 X10^3/uL (3.6-10.0)
[2022-12-05 05:11] LABS: ALANINE AMINOTRANSFERASE 23 Units/L (12-78); ALBUMIN 2.1 g/dL (3.4-5.0); ALKALINE PHOSPHATASE 117 Units/L (46-116); ASPARTATE AMINO TRANSFERASE 32 Units/L (15-37); BLOOD UREA NITROGEN 25 mg/dL (7-18); CALCIUM 7.7 mg/dL (8.5-10.1); CARBON DIOXIDE 25.2 mmol/L (21-32); CHLORIDE 113 mmol/L (98-107); COR CA(FOR HYPOALB) 9.2 mg/dL (8.5-10.1); COR NA(FOR HYPERGLY) 148 mmol/L (136-145); CREATININE 0.79 mg/dL (0.55-1.02); MAGNESIUM 1.4 mg/dL (2.0-2.9); SODIUM 146 mmol/L (136-145); TOTAL PROTEIN 4.6 g/dL (6.4-8.2); eGFR NON BLACK RACES > 60 (>60)
[2022-12-05] MEDS: XOPENEX 1.25 MG/3 ML NEBULE NEB SCH ×3 (05:35→21:00)
[2022-12-05] MEDS: ZOSYN VIAL 4.5 GRAMS 4.5 G in NS 100 ML IV 100 ML IV SCH ×3 (06:05→21:05)
[2022-12-05] MEDS ORDERED: POTASSIUM CHL 60 MEQ/NS 0.45% 500 ML IV PRN (08:28)
[2022-12-05] MEDS ORDERED: POTASSIUM CHL 40 MEQ/NS 0.45% 500 ML IV PRN (08:28)
[2022-12-05] MEDS ORDERED: KLOR-CON PO PRN (08:28)
[2022-12-05] MEDS ORDERED: MICRO K EXTEN CAP 10 MEQ PO PRN (08:28)
[2022-12-05] MEDS ORDERED: K-RIDER 10 MEQ/NS 100 ML 10 MEQ/100 ML BAG IV PRN (08:28)
[2022-12-05] MEDS ORDERED: K-DUR TAB 20 MEQ PO PRN (08:28)
[2022-12-05] MEDS ORDERED: POTASSIUM CHLORIDE LIQ 20 MEQ UDC PO PRN (08:28)
--- NOTE | 2022-12-05 08:35 | DR.PROGNOT ---
HOSPITAL PROGRESS NOTE Progress Note for Day of: Progress Note Date: 12/05/22 Chief Complaint Chief Complaint: no changes . PO sub total colectomy , ileostomy for gangrenous colon . today Pt is responding only to pain stimuli . moving her arms though . renal function is normal now and making good urine output . stool in ileostomy bag . Past Medical Family Social History Allergies: Allergies tramadol Allergy (Verified 11/29/22 16:59) amoxicillin [From Amoxil] Adverse Reaction (Severe, Verified 11/29/22 16:58) ANAPHALEXIS REACTION Review Of Systems ROS: No change since H&P Changes in ROS: see HPI Vital Signs Vital Signs: Temperature 98.0 F Pulse Rate [Left Radial] 89 Pulse Rate 108 Respiratory Rate 43 Blood Pressure [Left Arm] 94/51 Blood Pressure 136/88 O2 Sat by Pulse Oximetry 95 Physical Exam Oriented: Normal, Time, Person and Place Eyes: Normal Ear: Normal Nose: Normal Respiratory: Rhonchi Cardiovascular: Normal GI:Auscultation: Normal GI:Palpation: Other (soft abdomen , with diffuse tenderness . BS hypo active .) GI: Tenderness: Periumbilical Skin: Decreased Turgur Psychiatric: Normal Mood Description: Calm Affect: Normal Speech Pattern: Unclear Laboratory and Diagnostics Result Diagrams: 12/05/22 04:28 12/05/22 04:28 Labs: 12/03/22 07:05 Blood Blood Culture - Preliminary 12/03/22 17:13 Blood Blood Culture - Preliminary 12/04/22 20:40 Sputum - Expectorated Sputum - Final 12/01/22 12:45 Abdomen Wound Gram Stain - Final 12/01/22 12:45 Abdomen Wound Culture - Final Laboratory WBC 11.1 X10^3/uL (3.6-10.0) H 12/05/22 04:28 RBC 3.03 X10^6/uL (3.5-5.4) L 12/05/22 04:28 Hgb 9.0 g/dL (12.0-16.0) L 12/05/22 04:28 Hct 26.8 % (36.0-47.0) L 12/05/22 04:28 MCV 88.5 fL (80.0-100.0) 12/05/22 04:28 MCH 29.6 pg (27.0-34.0) 12/05/22 04:28 MCHC 33.5 g/dL (33.0-35.0) 12/05/22 04:28 RDW 14.3 % (11.6-16.5) 12/05/22 04:28 Plt Count 145 X10^3/uL (150.0-450.0) L 12/05/22 04:28 Plt Count Comment Decreased (ADEQUATE) A 12/04/22 04:44 MPV 9.6 fL (7.4-11.0) 12/05/22 04:28 Neut % (Auto) 77.2 % (42.0-75.0) H 12/05/22 04:28 Lymph % (Auto) 9.5 % (21.0-51.0) L 12/05/22 04:28 [place] % (Auto) 12.7 % (0.0-13.0) 12/05/22 04:28 Eos % (Auto) 0.4 % (0.9-2.9) L 12/05/22 04:28 Baso % (Auto) 0.2 % (0.2-1.0) 12/05/22 04:28 Neut # (Auto) 8.6 x10^3/uL (2.2-4.8) H 12/05/22 04:28 Lymph # (Auto) 1.1 X10^3/uL (1.3-2.9) L 12/05/22 04:28 [place] # (Auto) 1.4 x10^3/uL (0.3-0.8) H 12/05/22 04:28 Eos # (Auto) 0.0 x10^3/uL (0.0-0.2) 12/05/22 04:28 Baso # (Auto) 0.0 X10^3/uL (0.0-0.1) 12/05/22 04:28 Absolute Nucleated RBC 0.0 /100WBC 12/05/22 04:28 Total Counted 100 12/04/22 04:44 Neutrophils % (Manual) 77 % (39-76) H 12/04/22 04:44 Band Neutrophils % 2 % (0-10) 12/04/22 04:44 Lymphocytes % (Manual) 10 % (13-43) L 12/04/22 04:44 Monocytes % (Manual) 10 % (4-9) H 12/04/22 04:44 Eosinophils % (Manual) 1 % (0-6) 12/04/22 04:44 Metamyelocytes % 4 12/01/22 05:40 Myelocytes % 1 12/01/22 05:40 Plt Morphology Comment Normal (NORMAL) 12/04/22 04:44 RBC Morphology Normal (NORMAL) 12/04/22 04:44 Rusty Cells Slight A 12/01/22 05:40 Sodium 146 mmol/L (136-145) H 12/05/22 04:28 Corrected Sodium 148 mmol/L (136-145) H 12/05/22 04:28 Potassium 3.3 mmol/L (3.5-5.1) L 12/05/22 04:28 Chloride 113 mmol/L (98-107) H 12/05/22 04:28 Carbon Dioxide 25.2 mmol/L (21-32) 12/05/22 04:28 BUN 25 mg/dL (7-18) H 12/05/22 04:28 Creatinine 0.79 mg/dL (0.55-1.02) 12/05/22 04:28 Est GFR (MDRD) Af Amer > 60 (>60) 12/05/22 04:28 Est GFR (MDRD) Non-Af > 60 (>60) 12/05/22 04:28 Glucose 169 mg/dL (65-99) H 12/05/22 04:28 Lactic Acid 0.8 mmol/L (0.4-2.0) 12/03/22 17:13 Calcium 7.7 mg/dL (8.5-10.1) L 12/05/22 04:28 Corrected Calcium 9.2 mg/dL (8.5-10.1) 12/05/22 04:28 Magnesium 1.4 mg/dL (2.0-2.9) L 12/05/22 04:28 Total Bilirubin 0.80 mg/dL (0.2-1.0) 12/05/22 04:28 AST 32 Units/L (15-37) 12/05/22 04:28 ALT 23 Units/L (12-78) 12/05/22 04:28 Alkaline Phosphatase 117 Units/L (46-116) H 12/05/22 04:28 Total Protein 4.6 g/dL (6.4-8.2) L 12/05/22 04:28 Albumin 2.1 g/dL (3.4-5.0) L 12/05/22 04:28 Globulin 2.5 g/dL (2.5-4.5) 12/05/22 04:28 Albumin/Globulin Ratio 0.8 Ratio (1.1-2.1) L 12/05/22 04:28 Tissue Pathology To follow 12/01/22 13:25 Assessment and Plan 1: colon gangrene and ischemia . s/p subtotal colectomy , ileostomy . post op confusion and agitation . PO care , TPN , ABT , OOB with binder , DVT prophylaxis .
[2022-12-05] MEDS: MAGNESIUM SULFATE 1 GRAM/100 mL PREMIX 1 G/100 ML BAG IV PRN ×4 (08:51→12:44)
[2022-12-05] MEDS: SYNTHROID INJ 100 mcg VIAL IV SCH (10:23)
[2022-12-05] MEDS: LOVENOX INJ 40 MG SYR SC SCH (10:24)
[2022-12-05] MEDS: PROTONIX INJ 40 MG VIAL IVP SCH ×2 (10:25→21:05)
[2022-12-05] MEDS: ALBUMIN HUMAN 25%- 100 ML 100 ML IV SCH (10:25)
--- NOTE | 2022-12-05 11:17 | PCM.PROG ---
Progress Note Progress Note for Day of Date of Exam: 12/05/22 Subjective Subjective: Pt is a 77 year old female s/p subtotal colectomy, ileostomy. This morning she is not arousable. Her pupils are constricted and nonreactive. Yesterday afternoon her pupils became 3+ and more reactive. This morning her pupils are miotic again and is still nonreactive. However when she is agitated she flails her upper and lower extremities she did receive 1 mg Ativan IV earlier. We had planned on doing an MRI of the brain this morning however radiology reports he cannot do it since he just had a major surgery. We will plan on proceeding with a repeat CT scan of the brain without contrast this morning. Past Medical Family Social History Allergies: Allergies tramadol Allergy (Verified 11/29/22 16:59) amoxicillin [From Amoxil] Adverse Reaction (Severe, Verified 11/29/22 16:58) ANAPHALEXIS REACTION Review of Systems ROS: No change since H&P Vital Signs and I&O's Vital Signs: Temperature 98.0 F Pulse Rate [Left Radial] 89 Pulse Rate 108 Respiratory Rate 43 Blood Pressure [Left Arm] 94/51 Blood Pressure 136/88 O2 Sat by Pulse Oximetry 95 Intake and Output: Intake & Output 12/02/22 12/03/22 12/04/22 12/05/22 11:59 11:59 11:59 11:59 Intake Total 5920 / 5920 3240 / 3240 2962 / 2962 2421 / 2421 Output Total 3360 / 3360 2730 / 2730 3550 / 3550 4335 / 4335 Balance 2560 / 2560 510 / 510 -588 / -588 -1914 / -1914 Physical Exam Oriented: Normal, Time, Person and Place Eyes: Normal Ear: Normal Nose: Normal Respiratory: Rhonchi Cardiovascular: Normal Auscultation: Bowel Sounds: Absent Tenderness: Periumbilical Skin: Decreased Turgur Psychiatric: Normal Mood Description: Calm Affect: Normal Speech Pattern: Unclear Laboratory and Diagnostics Result Diagrams: 12/05/22 04:28 12/05/22 04:28 Labs: 12/03/22 07:05 Blood Blood Culture - Preliminary 12/03/22 17:13 Blood Blood Culture - Preliminary 12/04/22 20:40 Sputum - Expectorated Sputum - Final 12/01/22 12:45 Abdomen Wound Gram Stain - Final 12/01/22 12:45 Abdomen Wound Culture - Final Laboratory WBC 11.1 X10^3/uL (3.6-10.0) H 12/05/22 04:28 RBC 3.03 X10^6/uL (3.5-5.4) L 12/05/22 04:28 Hgb 9.0 g/dL (12.0-16.0) L 12/05/22 04:28 Hct 26.8 % (36.0-47.0) L 12/05/22 04:28 MCV 88.5 fL (80.0-100.0) 12/05/22 04:28 MCH 29.6 pg (27.0-34.0) 12/05/22 04:28 MCHC 33.5 g/dL (33.0-35.0) 12/05/22 04:28 RDW 14.3 % (11.6-16.5) 12/05/22 04:28 Plt Count 145 X10^3/uL (150.0-450.0) L 12/05/22 04:28 Plt Count Comment Decreased (ADEQUATE) A 12/04/22 04:44 MPV 9.6 fL (7.4-11.0) 12/05/22 04:28 Neut % (Auto) 77.2 % (42.0-75.0) H 12/05/22 04:28 Lymph % (Auto) 9.5 % (21.0-51.0) L 12/05/22 04:28 [place] % (Auto) 12.7 % (0.0-13.0) 12/05/22 04:28 Eos % (Auto) 0.4 % (0.9-2.9) L 12/05/22 04:28 Baso % (Auto) 0.2 % (0.2-1.0) 12/05/22 04:28 Neut # (Auto) 8.6 x10^3/uL (2.2-4.8) H 12/05/22 04:28 Lymph # (Auto) 1.1 X10^3/uL (1.3-2.9) L 12/05/22 04:28 [place] # (Auto) 1.4 x10^3/uL (0.3-0.8) H 12/05/22 04:28 Eos # (Auto) 0.0 x10^3/uL (0.0-0.2) 12/05/22 04:28 Baso # (Auto) 0.0 X10^3/uL (0.0-0.1) 12/05/22 04:28 Absolute Nucleated RBC 0.0 /100WBC 12/05/22 04:28 Total Counted 100 12/04/22 04:44 Neutrophils % (Manual) 77 % (39-76) H 12/04/22 04:44 Band Neutrophils % 2 % (0-10) 12/04/22 04:44 Lymphocytes % (Manual) 10 % (13-43) L 12/04/22 04:44 Monocytes % (Manual) 10 % (4-9) H 12/04/22 04:44 Eosinophils % (Manual) 1 % (0-6) 12/04/22 04:44 Metamyelocytes % 4 12/01/22 05:40 Myelocytes % 1 12/01/22 05:40 Plt Morphology Comment Normal (NORMAL) 12/04/22 04:44 RBC Morphology Normal (NORMAL) 12/04/22 04:44 [place] Cells Slight A 12/01/22 05:40 Sodium 146 mmol/L (136-145) H 12/05/22 04:28 Corrected Sodium 148 mmol/L (136-145) H 12/05/22 04:28 Potassium 3.3 mmol/L (3.5-5.1) L 12/05/22 04:28 Chloride 113 mmol/L (98-107) H 12/05/22 04:28 Carbon Dioxide 25.2 mmol/L (21-32) 12/05/22 04:28 BUN 25 mg/dL (7-18) H 12/05/22 04:28 Creatinine 0.79 mg/dL (0.55-1.02) 12/05/22 04:28 Est GFR (MDRD) Af Amer > 60 (>60) 12/05/22 04:28 Est GFR (MDRD) Non-Af > 60 (>60) 12/05/22 04:28 Glucose 169 mg/dL (65-99) H 12/05/22 04:28 Lactic Acid 0.7 mmol/L (0.4-2.0) 12/05/22 08:39 Calcium 7.7 mg/dL (8.5-10.1) L 12/05/22 04:28 Corrected Calcium 9.2 mg/dL (8.5-10.1) 12/05/22 04:28 Magnesium 1.4 mg/dL (2.0-2.9) L 12/05/22 04:28 Total Bilirubin 0.80 mg/dL (0.2-1.0) 12/05/22 04:28 AST 32 Units/L (15-37) 12/05/22 04:28 ALT 23 Units/L (12-78) 12/05/22 04:28 Alkaline Phosphatase 117 Units/L (46-116) H 12/05/22 04:28 Total Protein 4.6 g/dL (6.4-8.2) L 12/05/22 04:28 Albumin 2.1 g/dL (3.4-5.0) L 12/05/22 04:28 Globulin 2.5 g/dL (2.5-4.5) 12/05/22 04:28 Albumin/Globulin Ratio 0.8 Ratio (1.1-2.1) L 12/05/22 04:28 SARS-CoV-2 (PCR) Negative 12/03/22 16:55 Tissue Pathology To follow 12/01/22 13:25 Plan (1) Altered mental status: Status: Acute Narrative Support Text: Since patient is not becoming arousable I am inclined to think she may have had a neurological event. Plan: Plan on repeating CT of the brain without contrast this morning. (2) Bilateral pneumonia: Status: Acute (3) Nausea & vomiting: Status: Resolved Plan: Continue as needed Zofran. (4) Abdominal pain: Status: Acute Plan: Continue morphine for pain control. Exploratory laparotomy this morning. (5) Hypertension: Status: Acute (6) Hypothyroidism: Status: Acute Plan: Hold p.o. levothyroxine at this time. (7) GERD (gastroesophageal reflux disease): Status: Acute Plan: Continue IV Protonix. (8) Dehydration: Status: Resolved Plan: Continue IV hydration. (9) Acute kidney failure: Status: Resolved Plan: I will give the patient a bolus of 500 mL normal saline x1 this morning. (10) Hypokalemia: Status: Acute Plan: Potassium replacement protocol. (11) Hypomagnesemia: Status: Acute Plan: Replace with magnesium sulfate.
[2022-12-05] MEDS: CLINIMIX IV SCH ×6 (11:22→18:20)
[2022-12-05] MEDS: MAGNESIUM SULFATE IV SCH ×6 (11:22→18:20)
[2022-12-05] MEDS: [UNRECOGNIZED DRUG - OTHER] IV SCH ×6 (11:22→18:20)
--- NOTE | 2022-12-05 13:08 | CT ---
HISTORYCHANGE IN MENTAL STATUSSTUDYBRAIN W/O CONCOMPARISONCT head from 12/02/2022.TECHNIQUEMultiple axial images of the head were performed from the skullbase to the vertex using standard departmental protocol. Sagittal and coronal reformatted images were performed. Dose reduction techniques including Automated Exposure Control (AEC) and adjustment of mA and kV were utilized.FINDINGSMild motion artifact limits evaluation. The lateral ventricles and basilar cisterns are patent.No parenchymal mass or hematoma. Kwan-white differentiation appears acutely preserved. Mild low attenuation change in the subcortical and deep supratentorial white matter.No extra-axial collection.The globes are intact.No air fluid levels in the paranasal sinuses. No paranasal sinus wall thickening or sclerosis. Mastoid air cells are clear.The calvarium is intact.IMPRESSIONNo discernible acute intracranial abnormality. Mild chronic small vessel disease.Electronically signed by: Jorge A Zee (Dec 05, 2022 13:07:05)
[2022-12-05] MEDS: ATIVAN INJ 2 MG VIAL IVP PRN (18:19)
[2022-12-05] MEDS: CYMBALTA PO SCH (22:06)
[2022-12-06] MEDS: CLINIMIX IV SCH ×3 (03:51)
[2022-12-06] MEDS: [UNRECOGNIZED DRUG - OTHER] IV SCH ×3 (03:51)
[2022-12-06] MEDS: MAGNESIUM SULFATE IV SCH ×3 (03:51)
[2022-12-06] MEDS: D5 1/2 NS 1,000 ML 1,000 ML IV SCH ×3 (03:51→16:15)
[2022-12-06] MEDS ORDERED: DRUG FILTER EXTENSION SET ONE (03:52)
[2022-12-06] MEDS: ATIVAN INJ 2 MG VIAL IVP PRN ×2 (04:13→16:31)
[2022-12-06 05:15] LABS: BASOPHILS % (AUTO) 0.1 % (0.2-1.0); EOSINOPHILS % (AUTO) 0.2 % (0.9-2.9); HEMATOCRIT 28.4 % (36.0-47.0); HEMOGLOBIN 9.2 g/dL (12.0-16.0); LYMPHOCYTES # (AUTO) 0.9 X10^3/uL (1.3-2.9); LYMPHOCYTES % (AUTO) 6.6 % (21.0-51.0); MEAN CORPUSCULAR HEMOGLOBIN 29.3 pg (27.0-34.0); MEAN CORPUSCULAR HGB CONC 32.3 g/dL (33.0-35.0); MEAN CORPUSCULAR VOLUME 90.6 fL (80.0-100.0); MEAN PLATELET VOLUME 9.1 fL (7.4-11.0); MONOCYTES # (AUTO) 1.6 x10^3/uL (0.3-0.8); MONOCYTES % (AUTO) 11.1 % (0.0-13.0); NEUTROPHILS # (AUTO) 11.7 x10^3/uL (2.2-4.8); RED BLOOD COUNT 3.14 X10^6/uL (3.5-5.4); RED CELL DISTRIBUTION WIDTH 14.8 % (11.6-16.5); WHITE BLOOD COUNT 14.2 X10^3/uL (3.6-10.0)
[2022-12-06 05:35] LABS: ALANINE AMINOTRANSFERASE 22 Units/L (12-78); ALBUMIN 2.4 g/dL (3.4-5.0); ALKALINE PHOSPHATASE 75 Units/L (46-116); ASPARTATE AMINO TRANSFERASE 19 Units/L (15-37); BLOOD UREA NITROGEN 27 mg/dL (7-18); CALCIUM 7.6 mg/dL (8.5-10.1); CARBON DIOXIDE 29.3 mmol/L (21-32); CHLORIDE 114 mmol/L (98-107); COR CA(FOR HYPOALB) 8.9 mg/dL (8.5-10.1); COR NA(FOR HYPERGLY) 151 mmol/L (136-145); SODIUM 147 mmol/L (136-145); TOTAL PROTEIN 5.1 g/dL (6.4-8.2); eGFR NON BLACK RACES > 60 (>60)
[2022-12-06] MEDS: ZOSYN VIAL 4.5 GRAMS 4.5 G in NS 100 ML IV 100 ML IV SCH (05:47)
[2022-12-06] MEDS: XOPENEX 1.25 MG/3 ML NEBULE NEB SCH ×2 (06:32→13:02)
--- NOTE | 2022-12-06 08:39 | DR.PROGNOT ---
HOSPITAL PROGRESS NOTE Progress Note for Day of: Progress Note Date: 12/06/22 Chief Complaint Chief Complaint: still unconscious , not moving her arms today . having tachypnea , tachycardia . poor urine output , hypotensive . family decided to make the Pt DNR with meds only Past Medical Family Social History Allergies: Allergies tramadol Allergy (Verified 11/29/22 16:59) amoxicillin [From Amoxil] Adverse Reaction (Severe, Verified 11/29/22 16:58) ANAPHALEXIS REACTION Review Of Systems ROS: No change since H&P Changes in ROS: see HPI Vital Signs Vital Signs: Temperature 98.0 F Pulse Rate [Left Radial] 89 Pulse Rate 104 Respiratory Rate 61 Blood Pressure [Left Arm] 94/51 Blood Pressure 100/54 O2 Sat by Pulse Oximetry 99 Physical Exam Oriented: Normal, Time, Person and Place Eyes: Normal Ear: Normal Nose: Normal Respiratory: Rhonchi Cardiovascular: Normal GI:Auscultation: Absent GI:Palpation: Other (soft abdomen , with diffuse tenderness . BS hypo active .) GI: Tenderness: Periumbilical Skin: Decreased Turgur Psychiatric: Normal Mood Description: Calm Affect: Normal Speech Pattern: Unclear Laboratory and Diagnostics Result Diagrams: 12/06/22 04:30 12/06/22 04:30 Labs: 12/03/22 07:05 Blood Blood Culture - Preliminary 12/03/22 17:13 Blood Blood Culture - Preliminary 12/04/22 20:40 Sputum - Expectorated Sputum - Final 12/01/22 12:45 Abdomen Wound Gram Stain - Final 12/01/22 12:45 Abdomen Wound Culture - Final Laboratory WBC 14.2 X10^3/uL (3.6-10.0) H 12/06/22 04:30 RBC 3.14 X10^6/uL (3.5-5.4) L 12/06/22 04:30 Hgb 9.2 g/dL (12.0-16.0) L 12/06/22 04:30 Hct 28.4 % (36.0-47.0) L 12/06/22 04:30 MCV 90.6 fL (80.0-100.0) 12/06/22 04:30 MCH 29.3 pg (27.0-34.0) 12/06/22 04:30 MCHC 32.3 g/dL (33.0-35.0) L 12/06/22 04:30 RDW 14.8 % (11.6-16.5) 12/06/22 04:30 Plt Count 183 X10^3/uL (150.0-450.0) 12/06/22 04:30 Plt Count Comment Decreased (ADEQUATE) A 12/04/22 04:44 MPV 9.1 fL (7.4-11.0) 12/06/22 04:30 Neut % (Auto) 82.0 % (42.0-75.0) H 12/06/22 04:30 Lymph % (Auto) 6.6 % (21.0-51.0) L 12/06/22 04:30 [place] % (Auto) 11.1 % (0.0-13.0) 12/06/22 04:30 Eos % (Auto) 0.2 % (0.9-2.9) L 12/06/22 04:30 Baso % (Auto) 0.1 % (0.2-1.0) L 12/06/22 04:30 Neut # (Auto) 11.7 x10^3/uL (2.2-4.8) H 12/06/22 04:30 Lymph # (Auto) 0.9 X10^3/uL (1.3-2.9) L 12/06/22 04:30 [place] # (Auto) 1.6 x10^3/uL (0.3-0.8) H 12/06/22 04:30 Eos # (Auto) 0.0 x10^3/uL (0.0-0.2) 12/06/22 04:30 Baso # (Auto) 0.0 X10^3/uL (0.0-0.1) 12/06/22 04:30 Absolute Nucleated RBC 0.0 /100WBC 12/06/22 04:30 Total Counted 100 12/04/22 04:44 Neutrophils % (Manual) 77 % (39-76) H 12/04/22 04:44 Band Neutrophils % 2 % (0-10) 12/04/22 04:44 Lymphocytes % (Manual) 10 % (13-43) L 12/04/22 04:44 Monocytes % (Manual) 10 % (4-9) H 12/04/22 04:44 Eosinophils % (Manual) 1 % (0-6) 12/04/22 04:44 Metamyelocytes % 4 12/01/22 05:40 Myelocytes % 1 12/01/22 05:40 Plt Morphology Comment Normal (NORMAL) 12/04/22 04:44 RBC Morphology Normal (NORMAL) 12/04/22 04:44 [place] Cells Slight A 12/01/22 05:40 Sodium 147 mmol/L (136-145) H 12/06/22 04:30 Corrected Sodium 151 mmol/L (136-145) H 12/06/22 04:30 Potassium 4.9 mmol/L (3.5-5.1) 12/06/22 04:30 Chloride 114 mmol/L (98-107) H 12/06/22 04:30 Carbon Dioxide 29.3 mmol/L (21-32) 12/06/22 04:30 BUN 27 mg/dL (7-18) H 12/06/22 04:30 Creatinine 0.70 mg/dL (0.55-1.02) 12/06/22 04:30 Est GFR (MDRD) Af Amer > 60 (>60) 12/06/22 04:30 Est GFR (MDRD) Non-Af > 60 (>60) 12/06/22 04:30 Glucose 257 mg/dL (65-99) H 12/06/22 04:30 Lactic Acid 0.7 mmol/L (0.4-2.0) 12/05/22 08:39 Calcium 7.6 mg/dL (8.5-10.1) L 12/06/22 04:30 Corrected Calcium 8.9 mg/dL (8.5-10.1) 12/06/22 04:30 Magnesium 1.4 mg/dL (2.0-2.9) L 12/05/22 04:28 Total Bilirubin 0.30 mg/dL (0.2-1.0) 12/06/22 04:30 AST 19 Units/L (15-37) 12/06/22 04:30 ALT 22 Units/L (12-78) 12/06/22 04:30 Alkaline Phosphatase 75 Units/L (46-116) 12/06/22 04:30 Total Protein 5.1 g/dL (6.4-8.2) L 12/06/22 04:30 Albumin 2.4 g/dL (3.4-5.0) L 12/06/22 04:30 Globulin 2.7 g/dL (2.5-4.5) 12/06/22 04:30 Albumin/Globulin Ratio 0.9 Ratio (1.1-2.1) L 12/06/22 04:30 SARS-CoV-2 (PCR) Negative 12/03/22 16:55 Tissue Pathology To follow 12/01/22 13:25 Assessment and Plan 1: colon gangrene and ischemia . s/p subtotal colectomy , ileostomy . post op metabolic brain injury and system failure 2nd to sepsis same PO care , TPN , ABT , and comfort measures
--- NOTE | 2022-12-06 09:14 | PCM.PROG ---
Progress Note Progress Note for Day of Date of Exam: 12/06/22 Subjective Subjective: Pt is a 77 year old female s/p subtotal colectomy, ileostomy. Again is morning the patient is not arousable and the right pupil is constricted and nonreactive. The left pupil is 1+ and sluggishly active. Her ICU nurse informs me that the daughter made the patient a limited DNR last night. Spoke with the daughter again this morning and explained to her that it looks like she has had a neurologic event and that her condition is deteriorating. She wanted to make her mother a DNR comfort measures only. She wants to treat blood pressure with IV fluid but no pressors. Patient has morphine and Ativan ordered for comfort measures. Past Medical Family Social History Allergies: Allergies tramadol Allergy (Verified 11/29/22 16:59) amoxicillin [From Amoxil] Adverse Reaction (Severe, Verified 11/29/22 16:58) ANAPHALEXIS REACTION Review of Systems ROS: No change since H&P Vital Signs and I&O's Vital Signs: Temperature 97.5 F Pulse Rate [Left Radial] 89 Pulse Rate 107 Respiratory Rate 54 Blood Pressure [Left Arm] 94/51 Blood Pressure 91/51 O2 Sat by Pulse Oximetry 98 Intake and Output: Intake & Output 12/03/22 12/04/22 12/05/22 12/06/22 11:59 11:59 11:59 11:59 Intake Total 3240 / 3240 2962 / 2962 2421 / 2421 3044 / 3044 Output Total 2730 / 2730 3550 / 3550 4835 / 4835 2295 / 2295 Balance 510 / 510 -588 / -588 -2414 / -2414 749 / 749 Physical Exam Oriented: Normal, Time, Person and Place Eyes: Normal Ear: Normal Nose: Normal Respiratory: Rhonchi Cardiovascular: Normal Auscultation: Bowel Sounds: Absent Tenderness: Periumbilical Skin: Decreased Turgur Psychiatric: Normal Mood Description: Calm Affect: Normal Speech Pattern: Unclear Laboratory and Diagnostics Result Diagrams: 12/06/22 04:30 12/06/22 04:30 Labs: 12/03/22 07:05 Blood Blood Culture - Preliminary 12/03/22 17:13 Blood Blood Culture - Preliminary 12/04/22 20:40 Sputum - Expectorated Sputum - Final 12/01/22 12:45 Abdomen Wound Gram Stain - Final 12/01/22 12:45 Abdomen Wound Culture - Final Laboratory WBC 14.2 X10^3/uL (3.6-10.0) H 12/06/22 04:30 RBC 3.14 X10^6/uL (3.5-5.4) L 12/06/22 04:30 Hgb 9.2 g/dL (12.0-16.0) L 12/06/22 04:30 Hct 28.4 % (36.0-47.0) L 12/06/22 04:30 MCV 90.6 fL (80.0-100.0) 12/06/22 04:30 MCH 29.3 pg (27.0-34.0) 12/06/22 04:30 MCHC 32.3 g/dL (33.0-35.0) L 12/06/22 04:30 RDW 14.8 % (11.6-16.5) 12/06/22 04:30 Plt Count 183 X10^3/uL (150.0-450.0) 12/06/22 04:30 Plt Count Comment Decreased (ADEQUATE) A 12/04/22 04:44 MPV 9.1 fL (7.4-11.0) 12/06/22 04:30 Neut % (Auto) 82.0 % (42.0-75.0) H 12/06/22 04:30 Lymph % (Auto) 6.6 % (21.0-51.0) L 12/06/22 04:30 [place] % (Auto) 11.1 % (0.0-13.0) 12/06/22 04:30 Eos % (Auto) 0.2 % (0.9-2.9) L 12/06/22 04:30 Baso % (Auto) 0.1 % (0.2-1.0) L 12/06/22 04:30 Neut # (Auto) 11.7 x10^3/uL (2.2-4.8) H 12/06/22 04:30 Lymph # (Auto) 0.9 X10^3/uL (1.3-2.9) L 12/06/22 04:30 [place] # (Auto) 1.6 x10^3/uL (0.3-0.8) H 12/06/22 04:30 Eos # (Auto) 0.0 x10^3/uL (0.0-0.2) 12/06/22 04:30 Baso # (Auto) 0.0 X10^3/uL (0.0-0.1) 12/06/22 04:30 Absolute Nucleated RBC 0.0 /100WBC 12/06/22 04:30 Total Counted 100 12/04/22 04:44 Neutrophils % (Manual) 77 % (39-76) H 12/04/22 04:44 Band Neutrophils % 2 % (0-10) 12/04/22 04:44 Lymphocytes % (Manual) 10 % (13-43) L 12/04/22 04:44 Monocytes % (Manual) 10 % (4-9) H 12/04/22 04:44 Eosinophils % (Manual) 1 % (0-6) 12/04/22 04:44 Metamyelocytes % 4 12/01/22 05:40 Myelocytes % 1 12/01/22 05:40 Plt Morphology Comment Normal (NORMAL) 12/04/22 04:44 RBC Morphology Normal (NORMAL) 12/04/22 04:44 [place] Cells Slight A 12/01/22 05:40 Sodium 147 mmol/L (136-145) H 12/06/22 04:30 Corrected Sodium 151 mmol/L (136-145) H 12/06/22 04:30 Potassium 4.9 mmol/L (3.5-5.1) 12/06/22 04:30 Chloride 114 mmol/L (98-107) H 12/06/22 04:30 Carbon Dioxide 29.3 mmol/L (21-32) 12/06/22 04:30 BUN 27 mg/dL (7-18) H 12/06/22 04:30 Creatinine 0.70 mg/dL (0.55-1.02) 12/06/22 04:30 Est GFR (MDRD) Af Amer > 60 (>60) 12/06/22 04:30 Est GFR (MDRD) Non-Af > 60 (>60) 12/06/22 04:30 Glucose 257 mg/dL (65-99) H 12/06/22 04:30 Lactic Acid 0.7 mmol/L (0.4-2.0) 12/05/22 08:39 Calcium 7.6 mg/dL (8.5-10.1) L 12/06/22 04:30 Corrected Calcium 8.9 mg/dL (8.5-10.1) 12/06/22 04:30 Magnesium 1.4 mg/dL (2.0-2.9) L 12/05/22 04:28 Total Bilirubin 0.30 mg/dL (0.2-1.0) 12/06/22 04:30 AST 19 Units/L (15-37) 12/06/22 04:30 ALT 22 Units/L (12-78) 12/06/22 04:30 Alkaline Phosphatase 75 Units/L (46-116) 12/06/22 04:30 Total Protein 5.1 g/dL (6.4-8.2) L 12/06/22 04:30 Albumin 2.4 g/dL (3.4-5.0) L 12/06/22 04:30 Globulin 2.7 g/dL (2.5-4.5) 12/06/22 04:30 Albumin/Globulin Ratio 0.9 Ratio (1.1-2.1) L 12/06/22 04:30 SARS-CoV-2 (PCR) Negative 12/03/22 16:55 Tissue Pathology To follow 12/01/22 13:25 Plan (1) Altered mental status: Status: Acute Plan: Plan on repeating CT of the brain without contrast this morning. (2) Bilateral pneumonia: Status: Acute (3) Nausea & vomiting: Status: Resolved Plan: Continue as needed Zofran. (4) Abdominal pain: Status: Acute Plan: Continue morphine for pain control. Exploratory laparotomy this morning. (5) Hypertension: Status: Acute (6) Hypothyroidism: Status: Acute Plan: Hold p.o. levothyroxine at this time. (7) GERD (gastroesophageal reflux disease): Status: Acute Plan: Continue IV Protonix. (8) Dehydration: Status: Resolved Plan: Continue IV hydration. (9) Acute kidney failure: Status: Resolved Plan: I will give the patient a bolus of 500 mL normal saline x1 this morning. (10) Hypokalemia: Status: Acute Plan: Potassium replacement protocol. (11) Hypomagnesemia: Status: Acute Plan: Replace with magnesium sulfate. (12) Hypotension: Status: Acute Plan: We made the patient a full DNR this morning. We will only do comfort measures at this time. This is at her daughter's request.
[2022-12-06] MEDS: MORPHINE SULFATE INJ 2 MG INJ IVP PRN ×5 (09:36→18:34)
[2022-12-06 19:45] VITALS: BP 34/17
--- NOTE | 2022-12-08 10:30 | DR.DECEASE ---
SUMMARY PATIENT: JAYCEE SIMON MR #: [id number] JOB #: [id number] DATE OF ADMISSION: 11/29/2022 DATE OF : 12/06/2022 ADMISSION DIAGNOSES: 1. Acute abdomen. 2. Rule out bowel obstruction. 3. Rule out colitis. CAUSE OF : 1. Severe metabolic brain injury with subsequent cardiopulmonary arrest. 2. Gangrenous colon with sepsis. OTHER DIAGNOSES: 1. Hypertension. 2. Hypothyroidism. 3. Chronic gastroesophageal reflux disease and dysphagia. OPERATIONS: 1. Exploratory laparotomy. 2. Subtotal colectomy for gangrenous colon with ischemia. CONSULTATION: Tyson Rodriguez M.D. HOSPITAL COURSE: This is a 77-year-old female who was admitted through the emergency room. In the emergency room, she was found to have a very tender abdomen, although she was having bowel sounds that were hypoactive. The abdomen was slightly distended. She was afebrile and her white count was 10.6, BUN 39, creatinine 1.6. She was afebrile with a temperature of 98; pulse rate 101; respirations 20; blood pressure was on the low side, between 95 and 110; and pulse ox was 97% on room air. Her CT scan showed some abnormality between the descending colon and sigmoid suspicious for colitis. The patient was kept n.p.o. and was started on IV fluid. She continued to have bloating and abdominal distention. With IV antibiotics and increasing her fluid, her BUN and creatinine improved. Her KUB did not show any significant changes. With the persistent pain and decreased renal function, the plan was discussed with the patient and her family to proceed with surgery. She was somewhat obtunded, but she was able to understand the procedure. She underwent surgery on 12/01/2022. The procedure was an exploratory laparotomy, subtotal colectomy of gangrenous colon with ileostomy, and partial omentectomy. The procedure was smooth without significant blood loss. We were able to extubate the patient. She had some urine output and her renal function had improved. Her electrolytes, hemoglobin, and white count all were basically unremarkable and normal. Unfortunately, the patient started to be somewhat obtunded and unresponsive. She continued to hold her vital signs, but she started to have some deterioration of her blood pressure. She was tachypneic and tachycardiac. We started the PICC line and started her on TPN prior to surgery. She was covered with IV antibiotics all along. With the significant deterioration of her mental status, a CT scan of the brain was obtained twice, and that was reported as no evidence of acute brain injury, bleeding, or infarct. The patient had metabolic brain injury, most probably related to sepsis from the gangrenous colon. The patient was placed on DNR status with comfort measures only and on 12/06/2022. The family were kept informed about the patient's condition all along, and the daughter and the rest of her siblings decided to place the patient on DNR status with comfort measures. Dictated by: Ari Ireland M.D. Date and Time VIRAJ/ward #[id number] [facility]
== END 2022-12-06 22:00 | disposition expired | DRG 329 ==
LOC: MED/SURG → OBSVTOIN 15:33 → ICU 12-01 13:36
PROVIDERS: ADMIT Surgery; ATTEND Surgery
DX: Z79.899 Other long term (current) drug therapy; R11.2 Nausea with vomiting, unspecified; K56.7 Ileus, unspecified; I46.9 Cardiac arrest, cause unspecified; K59.09 Other constipation; E87.6 Hypokalemia; I96 Gangrene, not elsewhere classified; E03.8 Other specified hypothyroidism; J18.8 Other pneumonia, unspecified organism; R10.84 Generalized abdominal pain; K21.9 Gastro-esophageal reflux disease without esophagitis; K52.89 Other specified noninfective gastroenteritis and colitis; I95.89 Other hypotension; E83.42 Hypomagnesemia; N17.8 Other acute kidney failure; R41.82 Altered mental status, unspecified; I10 Essential (primary) hypertension; J90 Pleural effusion, not elsewhere classified